=== PATIENT | female | born 1970 | race Caucasian/White ===

== ENCOUNTER 2018-03-04 06:19 | Emergency (ER) | payer OTHER, SELFPAY ==
[2018-03-04 06:46] LABS: Absolute Lymphocytes (CBC) 2.6 K/uL (0.7-4.9); Absolute Monocytes 0.5 K/uL (0.1-1.3); Absolute Neutrophil 3.2 K/uL (1.8-8.0); Eosinophils % 6.4 % (0-4.4); Hematocrit 40.1 % (36.0-45.0); Lymphocytes % 38.2 % (15.3-44.8); MCH 30.8 pg (27.0-35.0); MPV 8.4 fL (7.6-11.3); Monocytes % 7.1 % (3.3-12.3); RBC Red Blood Cell Count 4.45 M/uL (3.86-4.86)
[2018-03-04 06:50] LABS: Protime INR 0.93
--- NOTE | 2018-03-04 07:04 | EKG ---
Test Date: 2018-03-04 Test Time: 06:30:05 Psychologist: RAISSA MEASUREMENT RESULTS: Intervals: Rate: 59 [place]: 148 QRSD: 84 QT: 408 QTc: 403 [place]: P: 75 [place]: 148 QRS: 64 T: 79 INTERPRETIVE STATEMENTS: Sinus bradycardia with sinus arrhythmia RSR' or QR pattern in V1 suggests right ventricular conduction delay Borderline ECG Compared to ECG 10/07/2014 21:56:24 RSR' in V1 or V2 now present Electronically Signed On 03-04-18 07:03:34 SLIP CASTER by Valentín Ferrer
[2018-03-04 07:05] LABS: ALT/SGPT 25 U/L (12-78); AST/SGOT 21 U/L (15-37); Albumin 3.8 g/dL (3.4-5.0); Alkaline Phosphatase 56 U/L (45-117); BUN Blood Urea Nitrogen 16 mg/dL (7-18); Bicarbonate 25 mmol/L (21-32); Bilirubin Direct 0.1 mg/dL (0-0.2); Bilirubin Total 0.3 mg/dL (0.2-1.0); Glucose Level 95 mg/dL (74-106); Magnesium 2.2 mg/dL (1.8-2.4); NT PRO-BNP 48 pg/mL (<125); Potassium 3.8 mmol/L (3.5-5.1); Protein, Total 7.7 g/dL (6.4-8.2); Sodium Level 142 mmol/L (136-145); Troponin (Emerg Dept Use Only) < 0.02 ng/mL (0.0-0.045)
--- NOTE | 2018-03-04 08:50 | RAD REPORT ---
EXAM DESCRIPTION: RAD - Chest Single View - 03/04/2018 7:11 am CLINICAL HISTORY: CHEST PAIN Chest pain. COMPARISON: CHEST SINGLE VIEW dated 10/07/2014 FINDINGS: Portable technique limits examination quality. Linear subsegmental atelectasis is present both lung bases. The lungs are otherwise clear. The heart is normal in size. No displaced fractures.
--- NOTE | 2018-03-04 08:54 | EDPHYS ---
Physician Documentation [facility] Name: Polly Osei Age: 47 yrs Sex: Female : 1970 Arrival Date: 03/04/2018 Time: 06:19 Bed 7 Private MD: Moreno Watkins ED Physician Aj Petty HPI: 03/04 06:48 This 47 yrs old Female presents to ER via Ambulatory with complaints of Chest pm1 Pain. 06:48 The patient or guardian reports chest pain that is located primarily in the anterior pm1 aspect of left upper chest. Onset: yesterday. The pain does not radiate. Associated signs and symptoms: Pertinent positives: dizziness, bilateral hand numbness, Pertinent negatives: abdominal pain, cough, diaphoresis, headache, nausea, near syncope, palpitations, shortness of breath, vomiting. The chest pain is described as sharp. Duration: The patient or guardian reports a single episode, that is still ongoing. Modifying factors: The symptoms are alleviated by nothing. the symptoms are aggravated by palpation of area, movement of left arm. The patient has experienced similar episodes in the past, multiple times, Patient has had the pain daily for multiple months. The patient has been recently seen by a physician: Patient with the same complaint 1 month ago and went to [place] [facility]. Transferred to [facility] with a diagnosis of bradycardia. Stress test performed with repeat blood work and then patient was discharged home.. 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 - Social history:: Smoking status: Patient uses tobacco products, smokes one pack cigarettes per day. - Ebola Screening: : No symptoms or risks identified at this time. ROS: 06:48 Constitutional: Negative for fever, chills, and weight loss, Eyes: Negative for injury, pm1 pain, redness, and discharge, ENT: Negative for injury, pain, and discharge, Neck: Negative for injury, pain, and swelling. 06:48 Respiratory: Negative for shortness of breath, cough, wheezing, and pleuritic chest pain, Abdomen/GI: Negative for abdominal pain, nausea, vomiting, diarrhea, and constipation, Back: Negative for injury and pain, : Negative for injury, bleeding, discharge, and swelling, MS/Extremity: Negative for injury and deformity, Skin: Negative for injury, rash, and discoloration, Neuro: Negative for headache, weakness, numbness, tingling, and seizure. 06:48 Cardiovascular: Positive for chest pain, Negative for edema, orthopnea, palpitations. Exam: 06:48 Constitutional: This is a well developed, well nourished patient who is awake, alert, pm1 and in no acute distress. Head/Face: Normocephalic, atraumatic. Eyes: Pupils equal round and reactive to light, extra-ocular motions intact. Lids and lashes normal. Conjunctiva and sclera are non-icteric and not injected. Cornea within normal limits. Periorbital areas with no swelling, redness, or edema. ENT: Nares patent. No nasal discharge, no septal abnormalities noted. Tympanic membranes are normal and external auditory canals are clear. Oropharynx with no redness, swelling, or masses, exudates, or evidence of obstruction, uvula midline. Mucous membranes moist. Neck: Trachea midline, no thyromegaly or masses palpated, and no cervical lymphadenopathy. Supple, full range of motion without nuchal rigidity, or vertebral point tenderness. No Meningismus. 06:48 Cardiovascular: Regular rate and rhythm with a normal S1 and S2. No gallops, murmurs, or rubs. Normal PMI, no JVD. No pulse deficits. Respiratory: Lungs have equal breath sounds bilaterally, clear to auscultation and percussion. No rales, rhonchi or wheezes noted. No increased work of breathing, no retractions or nasal flaring. Abdomen/GI: Soft, non-tender, with normal bowel sounds. No distension or tympany. No guarding or rebound. No evidence of tenderness throughout. Back: No spinal tenderness. No costovertebral tenderness. Full range of motion. Skin: Warm, dry with normal turgor. Normal color with no rashes, no lesions, and no evidence of cellulitis. MS/ Extremity: Pulses equal, no cyanosis. Neurovascular intact. Full, normal range of motion. 06:48 Chest/axilla: Inspection: normal, Palpation: crepitus, is not appreciated, tenderness, that is mild, of the anterior aspect of left upper chest, that totally reproduces the patient's complaints, Movement of left arm reproduces chest pain. 06:48 Neuro: Orientation: is normal, Motor: is normal, moves all fours, strength is 5/5 in all extremities, Sensation: is normal, no obvious gross deficits, Gait: is steady, at a normal pace, without difficulty. Vital Signs: 06:31 BP 127 / 82; Pulse 70; Resp 20 S; Temp 98(O); Pulse Ox 98% on R/A; Weight 76.2 kg (R); cc3 Height 5 ft. 5 in. (165.10 cm) (R); Pain 7/10; 08:28 BP 123 / 76; Pulse 50 MON; Resp 17; Pulse Ox 99% ; sv 09:16 BP 128 / 82; Pulse 49; Resp 18; Pulse Ox 99% ; sv 06:31 Body Mass Index 27.96 (76.20 kg, 165.10 cm) cc3 08:28 Sinus bradycardia sv MDM: 06:23 Patient medically screened. pm1 06:54 Data reviewed: vital signs. Data interpreted: Pulse oximetry: on room air is 98 %. pm1 Interpretation: normal. 08:53 Counseling: I had a detailed discussion with the patient and/or guardian regarding: the pm1 historical points, exam findings, and any diagnostic results supporting the discharge/admit diagnosis, lab results, radiology results, the need for outpatient follow up, to return to the emergency department if symptoms worsen or persist or if there are any questions or concerns that arise at home, smoking cessation. 03/04 06:28 Order name: Basic Metabolic Panel; Complete Time: 07:09 pm1 03/04 06:28 Order name: CBC with Diff; Complete Time: 06:47 pm1 03/04 06:28 Order name: LFT's; Complete Time: 07:09 pm1 03/04 06:28 Order name: Magnesium; Complete Time: 07:09 pm1 03/04 06:28 Order name: NT PRO-BNP; Complete Time: 07:09 pm1 03/04 06:28 Order name: PT-INR; Complete Time: 07:00 pm1 03/04 06:28 Order name: Troponin (emerg Dept Use Only); Complete Time: 07:09 pm1 03/04 06:28 Order name: XRAY Chest (1 view); Complete Time: 08:53 pm1 03/04 06:28 Order name: EKG; Complete Time: 06:29 pm1 03/04 06:28 Order name: Cardiac monitoring; Complete Time: 06:32 pm1 03/04 06:28 Order name: EKG - Nurse/Tech; Complete Time: 06:32 pm1 03/04 06:28 Order name: IV Saline Lock; Complete Time: 06:40 pm1 03/04 06:28 Order name: Labs collected and sent; Complete Time: 06:40 pm1 03/04 06:28 Order name: O2 Per Protocol; Complete Time: 06:32 pm1 03/04 06:28 Order name: O2 Sat Monitoring; Complete Time: 06:32 pm1 Administered Medications: No medications were administered Disposition: 03/04/18 08:54 Discharged to Home. Impression: Chest pain, unspecified. - Condition is Stable. - Discharge Instructions: Nonspecific Chest Pain, Steps to Quit Smoking, Smoking Hazards. - Medication Reconciliation Form, Thank You Letter form. - Follow up: Emergency Department; When: As needed; Reason: Worsening of condition. Follow up: Moreno Watkins; When: 2 - 3 days; Reason: Recheck today's complaints, Continuance of care, Re-evaluation by your physician. - Problem is new. - Symptoms have improved. Addendum: 03/07/2018 06:56 Co-signature as Attending Physician, Aj Petty MD I agree with the assessment and c guzman plan of care. Signatures: Dispatcher [employer] Sophia Hamilton, Aj Wyatt RN, MD MD cha Marinas, Patrick, BENDING SHED WORKER BENDING SHED WORKER pm1 Brea Segovia cc3 Corrections: (The following items were deleted from the chart) 03/04 09:17 08:54 03/04/2018 08:54 Discharged to Home. Impression: Chest pain, unspecified. sv Condition is Stable. Discharge Instructions: Nonspecific Chest Pain, Steps to Quit Smoking, Smoking Hazards. Forms are Medication Reconciliation Form, Thank You Letter, Antibiotic Education, Prescription Opioid Use. Follow up: Emergency Department; When: As needed; Reason: Worsening of condition. Follow up: Moreno Watkins; When: 2 - 3 days; Reason: Recheck today's complaints, Continuance of care, Re-evaluation by your physician. Problem is new. Symptoms have improved. pm1
--- NOTE | 2018-03-04 08:54 | ER ---
Nurse's Notes [facility] Name: Polly Osei Age: 47 yrs Sex: Female : 1970 Arrival Date: 03/04/2018 Time: 06:19 Bed 7 Private MD: Moreno Watkins Diagnosis: Chest pain, unspecified Presentation: 03/04 06:31 Presenting complaint: Patient states: Intermittent left sided chest pain that radiates cc3 to the left arm since several days now with dizziness. Transition of care: patient was not received from another setting of care. Onset of symptoms is unknown. Risk Assessment: Do you want to hurt yourself or someone else? Patient reports no desire to harm self or others. Initial Sepsis Screen: Does the patient meet any 2 criteria? No. Patient's initial sepsis screen is negative. Does the patient have a suspected source of infection? No. Patient's initial sepsis screen is negative. Care prior to arrival: None. 06:31 Method Of Arrival: Ambulatory cc3 06:31 Acuity: DARWIN 3 cc3 Triage Assessment: 06:31 General: Appears in no apparent distress. uncomfortable, Behavior is calm, cooperative, cc3 appropriate for age. Pain: Complains of pain in left side of the chest Pain currently is 7 out of 10 on a pain scale. Quality of pain is described as aching. EENT: No signs and/or symptoms were reported regarding the EENT system. Neuro: Level of Consciousness is awake, alert, obeys commands, Oriented to person, place, time, situation, Appropriate for age. Cardiovascular: Reports chest pain, lightheadedness, since several days now. Cardiovascular: Patient's skin is warm and dry. Respiratory: Airway is patent Respiratory effort is even, unlabored, Respiratory pattern is regular, symmetrical. GI: Abdomen is round non-distended. : No signs and/or symptoms were reported regarding the genitourinary system. Derm: No signs and/or symptoms reported regarding the dermatologic system. Musculoskeletal: Circulation, motion, and sensation intact. Range of motion: intact in all extremities. 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 - Social history:: Smoking status: Patient uses tobacco products, smokes one pack cigarettes per day. - Ebola Screening: : No symptoms or risks identified at this time. Screenin:41 Abuse screen: Denies threats or abuse. Nutritional screening: No deficits noted. cc3 Tuberculosis screening: No symptoms or risk factors identified. Fall Risk None identified. Assessment: 07:00 Reassessment: Patient appears in no apparent distress at this time. Patient and/or cc3 family updated on plan of care and expected duration. Pain level reassessed. Patient is alert, oriented x 3, equal unlabored respirations, skin warm/dry/pink. Handed over to morning shift for continuity of care. 09:14 Reassessment: Patient appears in no apparent distress at this time. Patient and/or sv family updated on plan of care and expected duration. Pain level reassessed. Patient is alert, oriented x 3, equal unlabored respirations, skin warm/dry/pink. Pt stated that she has no insurance and is unable to get any help. Pt stated that the clinics here in our area are not able to see her because she makes too much. Pt stated that she was admitted at [facility] in [place] for 4 days and they were not able to help get her help either. She spoke with social workers over there. Informed pt that I could call and speak with one of our social workers to see if they could help her and she stated no, that they would not be able to help her. Vital Signs: 06:31 BP 127 / 82; Pulse 70; Resp 20 S; Temp 98(O); Pulse Ox 98% on R/A; Weight 76.2 kg (R); cc3 Height 5 ft. 5 in. (165.10 cm) (R); Pain 7/10; 08:28 BP 123 / 76; Pulse 50 MON; Resp 17; Pulse Ox 99% ; sv 09:16 BP 128 / 82; Pulse 49; Resp 18; Pulse Ox 99% ; sv 06:31 Body Mass Index 27.96 (76.20 kg, 165.10 cm) cc3 08:28 Sinus bradycardia sv ED Course: 06:19 Patient arrived in ED. am2 06:20 Moreno Watkins MD is Private Physician. am2 06:23 [facility] pm1 06:23 Aj Petty MD is Attending Physician. pm1 06:30 Inserted saline lock: 20 gauge in right antecubital area, using aseptic technique. cc3 Blood collected. Patient maintains SpO2 saturation greater than 95% on room air. 06:31 Arm band placed on left wrist. Patient notified of wait time. cc3 06:32 Triage completed. cc3 06:41 Patient has correct armband on for positive identification. Bed in low position. Call cc3 light in reach. Side rails up X 1. 07:09 X-ray completed. Portable x-ray completed in exam room. Patient tolerated procedure jb2 well. 07:10 XRAY Chest (1 view) In Process Unspecified. EDMS 08:29 Sophia Douglass, MIGUEL A is Primary Nurse. sv 08:54 Moreno Watkins MD is Referral Physician. pm1 09:16 No provider procedures requiring assistance completed. IV discontinued, intact, sv bleeding controlled, No redness/swelling at site. Pressure dressing applied. Administered Medications: No medications were administered Outcome: 08:54 Discharge ordered by MD. pm1 09:16 Discharged to home ambulatory. sv 09:16 Condition: stable 09:16 Discharge instructions given to patient, Instructed on discharge instructions, follow up and referral plans. Demonstrated understanding of instructions, follow-up care, Pt did not want to take her discharge papers. 09:17 Patient left the ED. sv Signatures: Dispatcher [employer] EDUT Sophia Douglass RN RN Kayden Noel jb2 Robi Jo NP FURNACE OPERATOR AND TENDER pm1 Pretty Diaz am2 Brea Segovia cc3
== END 2018-03-04 09:17 | disposition home or self-care (01) ==
LOC: ER 06:19
DX: R07.9 Chest pain, unspecified (principal); F17.210 Nicotine dependence, cigarettes, uncomplicated; R00.1 Bradycardia, unspecified
CPT/HCPCS: 36415; 71045; 80048; 80076; 83735; 83880; 84484; 85025; 85610; 93005; 99284

== ENCOUNTER 2020-09-05 22:41 | Emergency (ER) | payer SELFPAY ==
[2020-09-05 23:58] LABS: Urine Blood Negative (Negative); Urine Glucose Negative (Negative); Urine Protein Trace (Negative); Urine Specific Gravity 1.025 (1.005-1.030)
[2020-09-06] MEDS ORDERED: ONDANSETRON 4 MG/2 ML VIAL ONE (00:13)
[2020-09-06] MEDS ORDERED: MORPHINE 2 MG/ML SYR ONE (00:13)
[2020-09-06] MEDS ORDERED: KETOROLAC 30 MG/ML INJ ONE (00:14)
[2020-09-06] MEDS ORDERED: NA CHLORIDE 0.9% 1,000 ML ONE (00:14)
[2020-09-06 00:18] LABS: Basophils % 1.1 % (0-1.3); Hematocrit 38.6 % (36.0-45.0); Lymphocytes % 45.6 % (15.3-44.8); MPV 8.9 fL (7.6-11.3); RBC Red Blood Cell Count 4.29 M/uL (3.86-4.86)
[2020-09-06 00:37] LABS: ALT/SGPT 24 U/L (12-78); AST/SGOT 17 U/L (15-37); Albumin 3.7 g/dL (3.4-5.0); Alkaline Phosphatase 54 U/L (45-117); BUN Blood Urea Nitrogen 18 mg/dL (7-18); Bicarbonate 26 mmol/L (21-32); Bilirubin Direct < 0.1 mg/dL (0-0.2); Bilirubin Total 0.2 mg/dL (0.2-1.0); Glucose Level 117 mg/dL (74-106); Lipase 196 U/L (73-393); Potassium 3.7 mmol/L (3.5-5.1); Protein, Total 7.6 g/dL (6.4-8.2); Sodium Level 142 mmol/L (136-145)
--- NOTE | 2020-09-06 03:15 | ER ---
Nurse's Notes [facility] Name: Polly Osei Age: 49 yrs Sex: Female : 1970 Arrival Date: 09/05/2020 Time: 22:43 Bed 23 Private MD: Diagnosis: Abdominal tenderness;Tobacco abuse counseling;Tobacco use Presentation: 09/05 22:53 Chief complaint: Patient states: I have right sided abdominal pain that radiates to the iw back with stabbing pains. The pain started 2 days ago and has gotten worse. I have nausea and just don't feel good. Coronavirus screen: Client denies travel out of the [place] in the last 14 days. Ebola Screen: Patient negative for fever greater than or equal to 101.5 degrees Fahrenheit, and additional compatible Ebola Virus Disease symptoms Patient denies exposure to infectious person. Patient denies travel to an Ebola-affected area in the 21 days before illness onset. Initial Sepsis Screen: Does the patient meet any 2 criteria? No. Patient's initial sepsis screen is negative. Does the patient have a suspected source of infection? No. Patient's initial sepsis screen is negative. Risk Assessment: Do you want to hurt yourself or someone else? Patient reports no desire to harm self or others. Onset of symptoms was September 02, 2020. 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 - Social history:: Smoking status: Patient reports the use of cigarette tobacco products, smokes one pack cigarettes per day. Screenin/21 00:21 Abuse screen: Denies threats or abuse. Denies injuries from another. Nutritional ad5 screening: No deficits noted. Tuberculosis screening: No symptoms or risk factors identified. Fall Risk None identified. Assessment: 00:00 General: Appears in no apparent distress. uncomfortable, Behavior is calm, cooperative, ad5 appropriate for age. Pain: Complains of pain in right lower quadrant Pain currently is 7 out of 10 on a pain scale. Neuro: Level of Consciousness is awake, alert, obeys commands, Oriented to person, place, time, situation, Appropriate for age. Cardiovascular: No deficits noted. Denies chest pain, shortness of breath, Heart tones present Capillary refill < 3 seconds Patient's skin is warm and dry. Pulses are all present. Rhythm is regular. Respiratory: No deficits noted. Airway is patent Respiratory effort is even, unlabored, Respiratory pattern is regular, symmetrical. GI: Abdomen is flat, Bowel sounds present X 4 quads. Abd is soft Abdomen is tender to palpation in right lower quadrant Reports lower abdominal pain, nausea. : Reports urgency, urinary frequency. EENT: No deficits noted. Derm: No deficits noted. Skin is pink, warm \T\ dry. Musculoskeletal: No deficits noted. 01:05 Reassessment: Patient and/or family updated on plan of care and expected duration. Pain ad5 level reassessed. Patient is alert, oriented x 3, equal unlabored respirations, skin warm/dry/pink. Patient states feeling better. Patient states symptoms have improved. 02:36 Reassessment: No changes from previously documented assessment. Patient and/or family ad5 updated on plan of care and expected duration. Pain level reassessed. Patient is alert, oriented x 3, equal unlabored respirations, skin warm/dry/pink. Patient states feeling better. 03:40 Reassessment: Patient appears in no apparent distress at this time. No changes from ad5 previously documented assessment. Patient and/or family updated on plan of care and expected duration. Pain level reassessed. Patient is alert, oriented x 3, equal unlabored respirations, skin warm/dry/pink. Patient states feeling better. Patient states symptoms have improved. Vital Signs: 09/05 22:55 BP 109 / 59; Pulse 81; Resp 17; Temp 97.8; Pulse Ox 97% ; Weight 84.82 kg; Height 5 ft. iw 5 in. (165.10 cm); Pain 8/10; 09/06 00:00 BP 106 / 61; Pulse 54; Resp 16 S; Pulse Ox 99% on R/A; ad5 01:06 BP 104 / 64; Pulse 62; Resp 16 S; Pulse Ox 98% on R/A; ad5 02:34 BP 105 / 56; Pulse 56; Resp 16 S; Pulse Ox 96% on R/A; Pain 3/10; ad5 03:40 BP 134 / 79; Pulse 56; Resp 16 S; Pulse Ox 98% on R/A; Pain 3/10; ad5 09/05 22:55 Body Mass Index 31.12 (84.82 kg, 165.10 cm) iw ED Course: 09/05 22:43 Patient arrived in ED. bp1 22:55 Triage completed. iw 22:58 Arm band placed on left wrist. iw 23:32 Aj Petty MD is Attending Physician. sravanthi 23:47 Demian Juárez is Primary Nurse. ad5 09/06 00:00 Allergy band placed. Placed in gown. Bed in low position. Call light in reach. Side ad5 rails up X2. 00:20 No provider procedures requiring assistance completed. Initial lab(s) drawn, by me, ad5 sent to lab. Inserted saline lock: 20 gauge in right hand, using aseptic technique. 00:22 CT Stone Protocol In Process Unspecified. EDMS 01:07 Basic Metabolic Panel Sent. ad5 01:27 Chest Single View XRAY In Process Unspecified. EDMS 01:49 CT Chest Wo Con Sent. ad5 02:03 CT Chest Wo Con In Process Unspecified. EDMS 03:13 Deven Hernandez MD is Referral Physician. sravanthi 03:41 IV discontinued, intact, bleeding controlled, No redness/swelling at site. Pressure ad5 dressing applied. Administered Medications: 00:05 Drug: NS 0.9% 1000 ml Route: IV; Rate: 1 bolus; Site: right hand; ad5 03:41 Follow up: IV Status: Completed infusion; IV Intake: 1000ml ad5 00:05 Drug: Zofran (Ondansetron) 4 mg Route: IVP; Site: right hand; ad5 01:07 Follow up: Response: Nausea is decreased ad5 00:06 Drug: morphine 2 mg {Note: RASS 0.} Route: IVP; Site: right hand; ad5 01:07 Follow up: Response: Pain is decreased; RASS: Alert and Calm (0) ad5 00:08 Drug: TORadol (ketorolac) 30 mg Route: IVP; Site: right hand; ad5 01:07 Follow up: Response: No adverse reaction; Pain is decreased ad5 Intake: 03:41 IV: 1000ml; Total: 1000ml. ad5 Outcome: 03:14 Discharge ordered by . sravanthi 03:41 Discharged to home ambulatory. ad5 03:41 Condition: stable 03:41 Discharge instructions given to patient, Instructed on discharge instructions, follow up and referral plans. medication usage, Demonstrated understanding of instructions, follow-up care, medications, Prescriptions given X 3. 03:42 Patient left the ED. ad5 Signatures: Dispatcher [employer] EDMN jA Petty MD MD cha Williams, Irene, RN RN Cari العلي Andrea ad5 Corrections: (The following items were deleted from the chart) 00:20 00:06 morphine 2 mg IVP in right hand ad5 ad5 03:42 03:41 Allergy band placed. ad5 ad5
--- NOTE | 2020-09-06 03:15 | EDPHYS ---
Physician Documentation [facility] Name: Polly Osei Age: 49 yrs Sex: Female : 1970 Arrival Date: 09/05/2020 Time: 22:43 Bed 23 Private MD: ED Physician Aj Petty HPI: 09/05 23:51 This 49 yrs old Female presents to ER via Ambulatory with complaints of Flank sravanthi Pain. 23:51 The patient complains of pain in the right mid back and right low back. The pain sravanthi radiates to the right mid back and right low back. Onset: The symptoms/episode began/occurred 2 day(s) ago. Modifying factors: The symptoms are alleviated by nothing. the symptoms are aggravated by nothing. Associated signs and symptoms: The patient has no apparent associated signs or symptoms. Severity of pain: At its worst the pain was moderate in the emergency department the pain is unchanged. The patient has not experienced similar symptoms in the past. 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 - Social history:: Smoking status: Patient reports the use of cigarette tobacco products, smokes one pack cigarettes per day. ROS: 23:53 Constitutional: Negative for fever, chills, and weight loss, Eyes: Negative for injury, sravanthi pain, redness, and discharge, ENT: Negative for injury, pain, and discharge, Neck: Negative for injury, pain, and swelling, Cardiovascular: Negative for chest pain, palpitations, and edema, Respiratory: Negative for shortness of breath, cough, wheezing, and pleuritic chest pain, : Negative for injury, bleeding, discharge, and swelling, MS/Extremity: Negative for injury and deformity, Skin: Negative for injury, rash, and discoloration, Neuro: Negative for headache, weakness, numbness, tingling, and seizure, Psych: Negative for depression, anxiety, suicide ideation, homicidal ideation, and hallucinations, Allergy/Immunology: Negative for hives, rash, and allergies, Endocrine: Negative for neck swelling, polydipsia, polyuria, polyphagia, and marked weight changes, Hematologic/Lymphatic: Negative for swollen nodes, abnormal bleeding, and unusual bruising. 23:53 Abdomen/GI: Positive for abdominal pain, abdominal distension, of the posterior aspect of right lateral abdomen, anterior aspect of right lateral abdomen, right upper quadrant and right lower quadrant. 23:53 Back: Positive for flank pain, on the right. Exam: 23:53 Constitutional: This is a well developed, well nourished patient who is awake, alert, sraavnthi and in no acute distress. Head/Face: Normocephalic, atraumatic. Eyes: Pupils equal round and reactive to light, extra-ocular motions intact. Lids and lashes normal. Conjunctiva and sclera are non-icteric and not injected. Cornea within normal limits. Periorbital areas with no swelling, redness, or edema. ENT: Nares patent. No nasal discharge, no septal abnormalities noted. Tympanic membranes are normal and external auditory canals are clear. Oropharynx with no redness, swelling, or masses, exudates, or evidence of obstruction, uvula midline. Mucous membranes moist. Neck: Trachea midline, no thyromegaly or masses palpated, and no cervical lymphadenopathy. Supple, full range of motion without nuchal rigidity, or vertebral point tenderness. No Meningismus. Chest/axilla: Normal chest wall appearance and motion. Nontender with no deformity. No lesions are appreciated. Cardiovascular: Regular rate and rhythm with a normal S1 and S2. No gallops, murmurs, or rubs. Normal PMI, no JVD. No pulse deficits. Respiratory: Lungs have equal breath sounds bilaterally, clear to auscultation and percussion. No rales, rhonchi or wheezes noted. No increased work of breathing, no retractions or nasal flaring. Back: No spinal tenderness. No costovertebral tenderness. Full range of motion. Skin: Warm, dry with normal turgor. Normal color with no rashes, no lesions, and no evidence of cellulitis. MS/ Extremity: Pulses equal, no cyanosis. Neurovascular intact. Full, normal range of motion. Neuro: Awake and alert, GCS 15, oriented to person, place, time, and situation. Cranial nerves II-XII grossly intact. Motor strength 5/5 in all extremities. Sensory grossly intact. Cerebellar exam normal. Normal gait. Psych: Awake, alert, with orientation to person, place and time. Behavior, mood, and affect are within normal limits. 23:53 Abdomen/GI: Inspection: abdomen appears normal, Bowel sounds: normal, Palpation: mild abdominal tenderness, in the right upper quadrant and right lower quadrant, Liver: no appreciated palpable abnormalities, Hernia: not appreciated. Vital Signs: 22:55 BP 109 / 59; Pulse 81; Resp 17; Temp 97.8; Pulse Ox 97% ; Weight 84.82 kg; Height 5 ft. iw 5 in. (165.10 cm); Pain 8/10; 09/06 00:00 BP 106 / 61; Pulse 54; Resp 16 S; Pulse Ox 99% on R/A; ad5 01:06 BP 104 / 64; Pulse 62; Resp 16 S; Pulse Ox 98% on R/A; ad5 02:34 BP 105 / 56; Pulse 56; Resp 16 S; Pulse Ox 96% on R/A; Pain 3/10; ad5 03:40 BP 134 / 79; Pulse 56; Resp 16 S; Pulse Ox 98% on R/A; Pain 3/10; ad5 09/05 22:55 Body Mass Index 31.12 (84.82 kg, 165.10 cm) iw MDM: 09/05 23:45 Patient medically screened. [facility] 23:54 Differential diagnosis: nephrolithiasis, pyelonephritis, diverticulitis, pancreatitis, sravanthi appendicitis, bowel obstruction, cholecystitis, Cholelithiasis, diverticulitis, gastritis. Data reviewed: vital signs, nurses notes, lab test result(s), CBC, electrolytes, hepatic panel. 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 Counseling: I had a detailed discussion with the patient and/or guardian regarding: the historical points, exam findings, and any diagnostic results supporting the discharge/admit diagnosis, lab results, radiology results. 09/05 23:33 Order name: Basic Metabolic Panel [facility] 09/05 23:33 Order name: CBC with Diff; Complete Time: 00:58 sravanthi 09/05 23:33 Order name: Hepatic Function; Complete Time: 00:58 [facility] 09/05 23: Order name: Lipase; Complete Time: 00:58 [facility] 09/05 23:33 Order name: Urine Culture [facility] 09/05 23:33 Order name: Basic Metabolic Panel; Complete Time: 00:58 EDMS 09/05 23:33 Order name: CT Stone Protocol [facility] 09/05 23:57 Order name: Urine Dipstick-Ancillary; Complete Time: 00:58 EDAK 09/06 00:59 Order name: Chest Single View XRAY [facility] 09/06 01:34 Order name: CT Chest Wo Con [facility] 09/06 02:13 Order name: SARS-COV-2 RT PCR; Complete Time: 03:12 EDMS 09/05 23:33 Order name: IV Saline Lock; Complete Time: 00:20 [facility] 09/05 23:33 Order name: Labs collected and sent; Complete Time: 00:20 [facility] 09/05 23:33 Order name: Urine Dipstick-Ancillary (obtain specimen); Complete Time: 01:07 [facility] Administered Medications: 09/06 00:05 Drug: NS 0.9% 1000 ml Route: IV; Rate: 1 bolus; Site: right hand; ad5 03:41 Follow up: IV Status: Completed infusion; IV Intake: 1000ml ad5 00:05 Drug: Zofran (Ondansetron) 4 mg Route: IVP; Site: right hand; ad5 01:07 Follow up: Response: Nausea is decreased ad5 00:06 Drug: morphine 2 mg {Note: RASS 0.} Route: IVP; Site: right hand; ad5 01:07 Follow up: Response: Pain is decreased; RASS: Alert and Calm (0) ad5 00:08 Drug: TORadol (ketorolac) 30 mg Route: IVP; Site: right hand; ad5 01:07 Follow up: Response: No adverse reaction; Pain is decreased ad5 Disposition: 09/06/20 03:14 Discharged to Home. Impression: Abdominal tenderness, Tobacco abuse counseling, Tobacco use. - Condition is Stable. - Discharge Instructions: Abdominal Pain, Adult, Steps to Quit Smoking, Smoking Hazards, Abdominal Pain, Adult, [id number], Steps to Quit Smoking, [id number]. - Prescriptions for Bentyl 20 mg Oral Tablet - take 1 tablet by ORAL route every 6 hours As needed; 20 tablet. Pepcid 20 mg Oral Tablet - take 1 tablet by ORAL route every 12 hours for 10 days; 20 tablet. Zofran 4 mg Oral Tablet - take 1 tablet by ORAL route every 12 hours As needed; 20 tablet. - Medication Reconciliation Form, Thank You Letter, Antibiotic Education, Prescription Opioid Use form. - Follow up: Private Physician; When: 2 - 3 days; Reason: Recheck today's complaints, Continuance of care, Re-evaluation by your physician. Follow up: Deven Hernandez MD; When: 2 - 3 days; Reason: Recheck today's complaints, Re-evaluation by your physician. - Problem is new. - Symptoms have improved. 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 [facility] 03:42 03:14 09/06/2020 03:14 Discharged to Home. Impression: Abdominal tenderness; Tobacco ad5 abuse counseling; Tobacco use. Condition is Stable. Forms are Medication Reconciliation Form, Thank You Letter, Antibiotic Education, Prescription Opioid Use. Follow up: Private Physician; When: 2 - 3 days; Reason: Recheck today's complaints, Continuance of care, Re-evaluation by your physician. Follow up: Deven Hernandez; When: 2 - 3 days; Reason: Recheck today's complaints, Re-evaluation by your physician. Problem is new. Symptoms have improved. sravanthi
[2020-09-06 03:51] VITALS: TEMP 97.8
[2020-09-06 03:57] VITALS: BP 134/79; O2SAT 98
--- NOTE | 2020-09-06 08:43 | RAD REPORT ---
EXAM DESCRIPTION: RAD - Chest Single View - 09/06/2020 1:28 am CLINICAL HISTORY: COUGH Chest pain. COMPARISON: Chest Single View dated 03/04/2018; CHEST SINGLE VIEW dated 10/07/2014 FINDINGS: Portable technique limits examination quality. The lungs are mildly underinflated but grossly clear. The heart is upper limit of normal in size. No displaced fractures.
--- NOTE | 2020-09-06 08:53 | RAD REPORT ---
EXAM DESCRIPTION: Stone Protocol [facility]: CT ABDOMEN PELVIS WITH IV CONTRAST CLINICAL HISTORY: Abd pain;Flank pain. COMPARISON: None. TECHNIQUE: Serial axial CT images were obtained from above the diaphragm through the pubic symphysis without administration of intravenous or oral contrast. All CT scans are performed using dose optimization techniques as appropriate, including automated exp osure control and/or standardized protocols, where dose is adjusted for indication for exam and body habitus. FINDINGS: Thoracic: Mild patchy mosaic attenuation/groundglass opacities in the lung bases. Hepatobiliary: No obvious concerning hepatic lesion identified in the absence of intravenous contrast . The gallbladder is unremarkable. No biliary ductal dilatation. Pancreas: Unremarkable. Spleen: Unremarkable. Gastrointestinal: No evidence of bowel obstruction or perienteric inflammation. The appendix is leopoldo l. Small amount of fecal material throughout the colon. Adrenals: No abnormality identified in either adrenal gland. Renal: No obvious parenchymal abnormality in either kidney in the absence of intravenous contrast. No hydronephrosis or urolithiasis. Bladder/Reproductive: Are grossly unremarkable appearance of the underdistended urinary bladder by CT technique. Hysterectomy. Vascular/Lymphatics: No lymphadenopathy identified by CT size criteria. Abdominal aorta is normal in caliber. Tiny right-sided calcified pelvic phlebolith, not to be confused with a distal ureteral calc ulus. Musculoskeletal: No concerning osseous lesion identified. Fluid / peritoneum: No significant free fluid. No free intraperitoneal air identified. IMPRESSION: 1. No acute abnormality identified in the abdomen or pelvis by CT. 2. No hydronephrosis or urolithiasis. 3. Mild patchy mosaic attenuation/groundglass opacities in the lung bases, nonspecific but can be s een with chronic small vessel or small airways disease. Electronically signed by: Merle Peraza MD 09/06/2020 12:36 AM CDT Due to temporary technical issues with the PACS/Fluency reporting system, reports are being signed by the in house radiologist without review as a courtesy to ensure prompt reporting. The interpreting r adiologist is fully responsible for the content of the report.
--- NOTE | 2020-09-06 09:48 | RAD REPORT ---
EXAM DESCRIPTION: CT Chest Without Intravenous Contrast CLINICAL HISTORY: The patient is 49 years old and is Female; PAIN TECHNIQUE: Axial computed tomography images of the chest without intravenous contrast. Sagittal an d coronal reformatted images were created and reviewed. This CT exam was performed using one or mor e of the following dose reduction techniques: automated exposure control, adjustment of the mA and/ or kV according to patient size, and/or use of iterative reconstruction technique. COMPARISON: No relevant prior studies available. FINDINGS: Lungs: Dependent and bibasilar atelectasis. No mass. No consolidation. Pleural space: Unremarkable. No pneumothorax. No significant effusion. Heart: Unremarkable. No cardiomegaly. No significant pericardial effusion. Bones/joints: Unremarkable. No acute fracture. No dislocation. Soft tissues: Unremarkable. Vasculature: Unremarkable. No thoracic aortic aneurysm. Lymph nodes: Unremarkable. No enlarged lymph nodes. IMPRESSION: No acute finding in the chest. Electronically signed by: Jeremy Jones MD 09/06/2020 2:56 AM CDT Due to temporary technical issues with the PACS/Fluency reporting system, reports are being signed by the in house radiologist without review as a courtesy to ensure prompt reporting. The interpreting r adiologist is fully responsible for the content of the report.
== END 2020-09-06 03:42 | disposition home or self-care (01) ==
LOC: ER 22:41
DX: R10.819 Abdominal tenderness, unspecified site (principal); Z72.0 Tobacco use; Z71.6 Tobacco abuse counseling; Z20.822 Contact with and (suspected) exposure to COVID-19; Z88.2 Allergy status to sulfonamides; Z88.5 Allergy status to narcotic agent
CPT/HCPCS: 36415; 71045; 71250; 74176; 76377; 80048; 80076; 81003; 83690; 85025; 87086; 87088; 96361; 96374; 96375; 99284; U0003

== ENCOUNTER 2021-04-22 09:39 | Emergency (ER) | payer SELFPAY ==
[2021-04-22] MEDS ORDERED: LORAZEPAM 0.5 MG TABLET ONE (10:58)
--- NOTE | 2021-04-22 11:41 | EDPHYS ---
Physician Documentation [facility] Name: Polly Osei Age: 50 yrs Sex: Female : 1970 Arrival Date: 04/22/2021 Time: 09:41 Bed 25 Private MD: ED Physician Bassam Lemus HPI: 04/22 10:34 This 50 yrs old Female presents to ER via Ambulatory with complaints of Depression, pm1 Decreased Appetite. 10:34 The patient presents to the emergency department with depression, over a , the pm1 patient's father. Onset: The symptoms/episode began/occurred 1 month(s) ago. Past psychiatric history: Prior diagnosis: depression, anxiety, Psychiatric medications include: none. Associated signs and symptoms: Pertinent negatives: homicidal ideation, substance abuse, suicide ideation. Severity of symptoms: in the emergency department the symptoms are unchanged. The patient has not recently seen a physician. Patient is depressed over the of her father 1 month ago. She is reporting difficulty sleeping the past 3 days and has decreased appetite. Patient denies suicidal and homicidal ideation. 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 - Social history:: Smoking status: Patient reports the use of cigarette tobacco products, smokes one pack cigarettes per day. ROS: 10:34 Constitutional: Negative for fever, chills, and weight loss. pm1 10:34 Cardiovascular: Negative for chest pain, palpitations, and edema, Respiratory: Negative for shortness of breath, cough, wheezing, and pleuritic chest pain, Abdomen/GI: Negative for abdominal pain, nausea, vomiting, diarrhea, and constipation, MS/Extremity: Negative for injury and deformity, Skin: Negative for injury, rash, and discoloration, Neuro: Negative for headache, weakness, numbness, tingling, and seizure. 10:34 Psych: Positive for anxiety, depression, insomnia, Negative for homicidal ideation, suicide gesture, suicidal ideation. 10:34 All other systems are negative. Exam: 10:34 Constitutional: This is a well developed, well nourished patient who is awake, alert, pm1 and in no acute distress. Head/Face: Normocephalic, atraumatic. 10:34 Skin: Warm, dry with normal turgor. Normal color with no rashes, no lesions, and no evidence of cellulitis. MS/ Extremity: Pulses equal, no cyanosis. Neurovascular intact. Full, normal range of motion. 10:34 Cardiovascular: Exam negative for acute changes, Rate: normal, Rhythm: regular, Pulses: no pulse deficits are appreciated. 10:34 Respiratory: Exam negative for acute changes, respiratory distress, shortness of breath, Breath sounds: are clear throughout. 10:34 Neuro: Exam negative for acute changes, Orientation: is normal, Mentation: is normal, Motor: moves all fours, Gait: is steady, at a normal pace, without difficulty. 10:34 Psych: Behavior/mood is anxious, depressed, Affect is animated, Oriented to person, place, time, Patient has no thoughts/intents to harm self or others. Vital Signs: 10:15 BP 129 / 74; Pulse 82; Resp 17; Temp 97.0; Pulse Ox 98% ; Weight 81.65 kg; Height 5 ft. ll1 5 in. (165.10 cm); Pain 0/10; 10:15 Body Mass Index 29.95 (81.65 kg, 165.10 cm) ll1 MDM: 10:20 Patient medically screened. pm1 11:35 Data reviewed: vital signs. Data interpreted: Pulse oximetry: on room air is 98 %. pm1 Interpretation: normal. ED course: Patient is not suicidal or homicidal. Patient reports Ativan has given her the ability to relax and sleep but she has continued feelings of grief, which is natural given the recent of her father. Patient would like to go home with a prescription for antidepressant and will follow up with psychiatry in [place]. 11:43 ED course: Grief support group information at [facility] provided pm1 to the patient. 13:24 ED course: patient returned back for work release. pm1 Administered Medications: 10:50 Drug: Ativan (LORazepam) 1 mg Route: PO; ww Disposition: 17:44 Co-signature as Attending Physician, Bassam Lemus MD I agree with the assessment and rn plan of care. Attestation: The patient's history, exam findings, diagnostics, and a summary of any interventions or procedures was reviewed in detail with Robi Jo NP. Disposition Summary: 04/22/21 11:40 Discharge Ordered Location: Home pm1 Problem: new pm1 Symptoms: have improved pm1 Condition: Stable pm1 Diagnosis - Acute stress reaction - grief and bereavement pm1 Followup: pm1 - With: Emergency Department - When: As needed - Reason: Worsening of condition Followup: pm1 - With: Private Physician - When: 2 - 3 days - Reason: Recheck today's complaints, Continuance of care, Re-evaluation by your physician Discharge Instructions: - Discharge Summary Sheet pm1 - Stress, Adult pm1 - Managing Depression, Adult pm1 Forms: - Medication Reconciliation Form pm1 - Thank You Letter pm1 - Antibiotic Education pm1 - Prescription Opioid Use pm1 - Work release form pm1 Prescriptions: - Celexa 20 mg Oral Tablet - take 1 tablet by ORAL route once daily; 20 tablet; Refills: 0, Product pm1 Selection Permitted Signatures: Bassam Lemus MD MD rn Marinas, Patrick, NP DIRECTOR OF DEVELOPMENT pm1 Rachael Gan RN RN ll1 Latha Baker RN RN ww
--- NOTE | 2021-04-22 11:41 | ER ---
Nurse's Notes [facility] Name: Polly Osei Age: 50 yrs Sex: Female : 1970 Arrival Date: 04/22/2021 Time: 09:41 Bed 25 Private MD: Diagnosis: Acute stress reaction-grief and bereavement Presentation: 04/22 10:15 Chief complaint: Patient states: depression for 1 month. Father . Unable to ll1 eat/sleep. Generalized suicidal thoughts, no specific plan. Ebola Screen: Patient denies travel to an Ebola-affected area in the 21 days before illness onset. Initial Sepsis Screen: Does the patient meet any 2 criteria? No. Patient's initial sepsis screen is negative. Does the patient have a suspected source of infection? No. Patient's initial sepsis screen is negative. Risk Assessment: Do you want to hurt yourself or someone else? Patient reports no desire to harm self or others. Onset of symptoms was March 22, 2021. 10:15 Method Of Arrival: Ambulatory ll1 10:15 Acuity: DARWIN 3 ll1 15:06 Coronavirus screen: Client denies travel out of the [place] in the last 14 days. ww Triage Assessment: 15:05 General: Appears Behavior is anxious, crying. 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 - Social history:: Smoking status: Patient reports the use of cigarette tobacco products, smokes one pack cigarettes per day. Screenin:30 Abuse screen: Denies threats or abuse. Denies injuries from another. Nutritional ww screening: No deficits noted. Tuberculosis screening: No symptoms or risk factors identified. Fall Risk None identified. Assessment: 11:00 General: Appears well groomed, well developed, Behavior is anxious, crying. General: ww Extremely emotional due to recent loss of her father, stress of her terminal and disabled children. Pain: Denies pain. Neuro: Level of Consciousness is awake, alert, obeys commands, Oriented to person, place, time, situation. Cardiovascular: Denies chest pain, shortness of breath, Capillary refill < 3 seconds. Respiratory: No deficits noted. Airway is patent Respiratory effort is even, unlabored, Respiratory pattern is regular, symmetrical. GI: No deficits noted. No signs and/or symptoms were reported involving the gastrointestinal system. : No deficits noted. No signs and/or symptoms were reported regarding the genitourinary system. EENT: No deficits noted. No signs and/or symptoms were reported regarding the EENT system. Derm: No deficits noted. No signs and/or symptoms reported regarding the dermatologic system. Skin is intact, is healthy with good turgor, Skin is pink, warm \\T\\ dry. Skin temperature is. Musculoskeletal: No deficits noted. No signs and/or symptoms reported regarding the musculoskeletal system. Psych: 11:30 [place] Suicide Severity Screening: In the past month, have you wished you were ww or wished you could go to sleep and not wake up? Patient responds "No." "In the past month, have you actually had any thoughts of killing yourself?" Patient responds "no." "In your lifetime, have you ever done anything, started to do anything, or prepared to do anything to end your life?" Patient responds "yes." Patient reports suicidal intent occurred greater than 3 months prior. Subjective: Patient's mood is sad, irritable, Delusions are denied, Hallucinations are denied. Objective: Patient is cooperative, Speech is normal, Affect is appropriate. Safety Checks: Personal items have not been removed. Door is open. Pt denies substance abuse. Commitment: None. 15:06 Interventions: Patient reassessed during use of restraints. Patient is physically safe. ww Vital Signs: 10:15 BP 129 / 74; Pulse 82; Resp 17; Temp 97.0; Pulse Ox 98% ; Weight 81.65 kg; Height 5 ft. ll1 5 in. (165.10 cm); Pain 0/10; 10:15 Body Mass Index 29.95 (81.65 kg, 165.10 cm) ll1 ED Course: 09:41 Patient arrived in ED. as 10:17 Triage completed. ll1 10:17 Arm band placed on. ll1 10:20 Robi Jo NP is PHCP. pm1 10:20 Bassam Lemus MD is Attending Physician. pm1 10:44 Latha Baker, RN is Primary Nurse. ww 11:30 Patient has correct armband on for positive identification. ww 11:30 No provider procedures requiring assistance completed. Patient did not have IV access ww during this emergency room visit. Administered Medications: 10:50 Drug: Ativan (LORazepam) 1 mg Route: PO; ww Outcome: 11:40 Discharge ordered by MD. pm1 13:00 Discharged to home ambulatory. ww 13:00 Condition: stable 13:00 Discharge instructions given to patient, Instructed on discharge instructions, follow up and referral plans. medication usage, safety practices, Demonstrated understanding of instructions, Prescriptions given X 1. 13:44 Patient left the ED. ll1 Signatures: Becka Block Patrick, NP DATA TECHNICAL LEAD pm1 Rachael Gan, RN RN 1 Latha Baker, RN RN
[2021-04-22 13:48] VITALS: BP 129/74; TEMP 97; O2SAT 98
== END 2021-04-22 13:44 | disposition home or self-care (01) ==
LOC: ER 09:39
DX: F43.0 Acute stress reaction (principal); F43.21 Adjustment disorder with depressed mood; F17.210 Nicotine dependence, cigarettes, uncomplicated; Z88.2 Allergy status to sulfonamides; Z88.5 Allergy status to narcotic agent
CPT/HCPCS: 99283

== ENCOUNTER 2021-05-29 20:39 | Emergency (ER) | payer SELFPAY ==
[2021-05-29 21:26] LABS: Urine Blood Negative (Negative); Urine Glucose Negative (Negative); Urine Protein Trace (Negative); Urine Specific Gravity >=1.030 (1.005-1.030)
[2021-05-29 21:34] LABS: Urine Specific Gravity/Preg >1.030 (1.005-1.030)
[2021-05-29 21:38] LABS: Absolute Lymphocytes (CBC) 2.9 K/uL (0.7-4.9); Hematocrit 40.3 % (36.0-45.0); Lymphocytes % 37.8 % (15.3-44.8); MPV 8.3 fL (7.6-11.3); RBC Red Blood Cell Count 4.53 M/uL (3.86-4.86)
[2021-05-29 22:03] LABS: Protime INR 0.97
[2021-05-29 22:04] LABS: Barbiturates NEGATIVE (NEGATIVE); Benzodiazepines NEGATIVE (NEGATIVE); Cocaine NEGATIVE (NEGATIVE); METHAMPHETAM NEGATIVE (NEGATIVE); Methadone NEGATIVE (NEGATIVE); Opiates NEGATIVE (NEGATIVE); Phencyclidine NEGATIVE (NEGATIVE); THC Cannibis POSITIVE (NEGATIVE)
[2021-05-29 22:31] LABS: ALT/SGPT 25 U/L (12-78); AST/SGOT 24 U/L (15-37); Albumin 3.9 g/dL (3.4-5.0); Alkaline Phosphatase 56 U/L (45-117); BUN Blood Urea Nitrogen 15 mg/dL (7-18); Bicarbonate 22 mmol/L (21-32); Bilirubin Direct < 0.1 mg/dL (0-0.2); Bilirubin Total 0.3 mg/dL (0.2-1.0); Glucose Level 92 mg/dL (74-106); Potassium 3.8 mmol/L (3.5-5.1); Protein, Total 7.8 g/dL (6.4-8.2); Sodium Level 138 mmol/L (136-145)
--- NOTE | 2021-05-29 23:41 | EDPHYS ---
Physician Documentation [facility] Name: Polly Osei Age: 50 yrs Sex: Female : 1970 Arrival Date: 05/29/2021 Time: 20:43 Bed 19 Private MD: ED Physician Williams Michelle HPI: 05/29 21:12 This 50 yrs old Female presents to ER via Ambulatory with complaints of Suicidal jmm Ideation. 21:12 The patient presents to the emergency department with depression, suicide ideation, but jmm the patient has no formulated plan. Onset: The symptoms/episode began/occurred today. Past psychiatric history: Psychiatric medications include: Celexa. Associated signs and symptoms: Pertinent positives; depression, suicide ideation. The patient has not experienced similar symptoms in the past. This is a 50-year-old female with history of anxiety, arthritis, COPD, depression the presents emergency department with complaints of increased depression since the of her father which was roughly 2 months ago. Patient states that she has also had issues with her sister due to financial problems. Patient stated that she did not want to be here anymore earlier today and was advised to go to the ED for evaluation for suicidal ideations. Patient currently states she has no plan to hurt herself but she is in a position where she does not know what to do patient states she ran out of her Celexa and is unsure which dose she takes. Patient also denies any homicidal ideation. 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 - Social history:: Smoking status: Patient denies any tobacco usage or history of. ROS: 21:12 Constitutional: Negative for fever, chills, and weight loss, Cardiovascular: Negative jmm for chest pain, palpitations, and edema, Respiratory: Negative for shortness of breath, cough, wheezing, and pleuritic chest pain. 21:12 Psych: Positive for depression. 21:12 All other systems are negative. Exam: 21:12 Head/Face: atraumatic. Eyes: EOMI, no conjunctival erythema appreciated ENT: Moist [facility] Mucus Membranes Neck: Trachea midline, Supple Chest/axilla: Normal chest wall appearance and motion. Cardiovascular: Regular rate and rhythm. No edema appreciated Respiratory: Normal respirations, no respiratory distress appreciated Abdomen/GI: Non distended, soft Back: Normal ROM Skin: General appearance color normal MS/ Extremity: Moves all extremities, no obvious deformities appreciated, no edema noted to the lower extremities 21:12 Constitutional: The patient appears alert, awake, anxious, uncomfortable. 21:12 Neuro: Orientation: is normal, Mentation: is normal, Memory: is normal. 21:12 Psych: Behavior/mood is pleasant, cooperative, anxious, depressed, Patient has no thoughts/intents to harm self or others. Vital Signs: 21:11 BP 125 / 69; Pulse 60; Resp 16; Temp 97.7; Pulse Ox 96% on R/A; Weight 79.38 kg; Height vc1 5 ft. 5 in. (165.10 cm); Pain 0/10; 21:11 Body Mass Index 29.12 (79.38 kg, 165.10 cm) vc1 MDM: 21:48 Patient medically screened. [facility] 23:39 Data reviewed: vital signs, nurses notes. [facility] 23:39 ED course: Patient was evaluated by [facility] commercial representative did not recommend [facility] inpatient care for the patient. Will set up follow-up in 1 to 2 weeks for further evaluation and outpatient care. I discussed this with the patient who agrees with plan of care. I did review previous visits it looks like the patient is taking 20 mg of Celexa. I will refill that prescription for. Patient otherwise given strict return precautions. Patient understood and agrees plan of care.. 05/29 21:00 Order name: Acetaminophen; Complete Time: 22:41 [facility] 05/29 21:00 Order name: Basic Metabolic Panel; Complete Time: 22:41 [facility] 05/29 21:00 Order name: CBC with Diff; Complete Time: 21:48 [facility] 05/29 21:00 Order name: ETOH Level; Complete Time: 22:08 [facility] 05/29 21:00 Order name: Hepatic Function; Complete Time: 22:41 [facility] 05/29 21:00 Order name: PT-INR; Complete Time: 22:04 [facility] 05/29 21:00 Order name: Ptt, Activated; Complete Time: 22:04 [facility] 05/29 21:00 Order name: Salicylate; Complete Time: 22:28 [facility] 05/29 21:00 Order name: Urine Drug Screen; Complete Time: 22:04 [facility] 05/29 21:00 Order name: EKG; Complete Time: 21:01 [facility] 05/29 21:00 Order name: EKG - Nurse/Tech; Complete Time: 21:49 [facility] 05/29 21:05 Order name: COVID-19 SARS RT PCR (Document "Date of Onset" if Symptomatic); Complete mw2 Time: 22:53 05/29 21:25 Order name: Urine Dipstick-Ancillary; Complete Time: 21:30 [facility] 05/29 21:27 Order name: Urine --Ancillary (enter results); Complete Time: 21:48 ds4 05/29 21:00 Order name: IV Saline Lock; Complete Time: 21:28 [facility] 05/29 21:00 Order name: Labs collected and sent; Complete Time: 21:28 [facility] 05/29 21:00 Order name: Suicide Screening ([place]); Complete Time: 21:44 [facility] 05/29 21:00 Order name: Urine Dipstick-Ancillary (obtain specimen); Complete Time: 21:28 [facility] Administered Medications: No medications were administered Disposition: 05/30 01:01 Co-signature as Attending Physician, Williams Michelle MD. [email or web address] Disposition Summary: 05/29/21 23:40 Discharge Ordered Location: Home [facility] Condition: Stable [facility] Diagnosis - Depression and bereavement [facility] Followup: [facility] - With: Private Physician - When: 2 - 3 days - Reason: Recheck today's complaints, Continuance of care, Re-evaluation by your physician Discharge Instructions: - Discharge Summary Sheet [facility] - Managing Depression, Adult [facility] Forms: - Medication Reconciliation Form [facility] - Thank You Letter [facility] - Antibiotic Education [facility] - Prescription Opioid Use [facility] Prescriptions: - Celexa 20 mg Oral Tablet - take 1 tablet by ORAL route once daily; 20 tablet; Refills: 0, Product [facility] Selection Permitted Signatures: Dispatcher [employer] Paulo Sargent PA PA jmm Holmes, Maurice, MD MD mh7 Marina Medina RN RN vc1
--- NOTE | 2021-05-29 23:41 | ER ---
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 I lost my dad in March my sister started drama on Wednesday. I don't really want to I just feel worthless and that I don't matter, my feelings don't matter. 21:09 Method Of Arrival: Ambulatory vc1 21:11 Ebola Screen: No symptoms or risks identified at this time. Initial Sepsis Screen: Does vc1 the patient meet any 2 criteria? No. Patient's initial sepsis screen is negative. Does the patient have a suspected source of infection? No. Patient's initial sepsis screen is negative. Risk Assessment: Do you want to hurt yourself or someone else? Patient reports desire/thoughts of hurting themselves or someone else. Provider notified. Onset of symptoms is unknown. 21:11 Acuity: DARWIN 3 vc1 Triage Assessment: 21:12 General: Appears in no apparent distress. comfortable, Behavior is calm, cooperative, vc1 appropriate for age. Pain: Denies pain. Neuro: No deficits noted. Level of Consciousness is awake, alert, obeys commands, Oriented to person, place, time, situation, Appropriate for age. Cardiovascular: No deficits noted. Respiratory: No deficits noted. 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 - Social history:: Smoking status: Patient denies any tobacco usage or history of. Vital Signs: 21:11 BP 125 / 69; Pulse 60; Resp 16; Temp 97.7; Pulse Ox 96% on R/A; Weight 79.38 kg; Height vc1 5 ft. 5 in. (165.10 cm); Pain 0/10; 21:11 Body Mass Index 29.12 (79.38 kg, 165.10 cm) vc1 ED Course: 20:43 Patient arrived in ED. jj6 20:58 Paulo Lang PA is PHCP. [facility] 20:58 Williams Michelle MD is Attending Physician. m 21:12 Triage completed. vc1 21:12 Arm band placed on right wrist. vc1 21:13 Denise Iverson RN is Primary Nurse. sf1 21:28 Inserted saline lock: 22 gauge in right antecubital area, using aseptic technique. ds4 Blood collected. 22:25 called [facility] spoke to [place] to have a screener evaluate the patient. mw2 Administered Medications: No medications were administered Outcome: 23:40 Discharge ordered by . [facility] 05/30 00:00 Patient left the ED. sf1 Signatures: Paulo Lang PA PA jmm Swanson, Donovan ds4 Mariam Estevez mw2 Sameera Hackett jj6 Marina Medina RN RN vc1 Denise Iverson RN RN sf1
[2021-05-30 00:34] VITALS: BP 125/69; TEMP 97.7; O2SAT 96
== END 2021-05-30 | disposition home or self-care (01) ==
LOC: ER 20:39
DX: F43.21 Adjustment disorder with depressed mood (principal); Z63.4 Disappearance and death of family member; F41.9 Anxiety disorder, unspecified; Z20.822 Contact with and (suspected) exposure to COVID-19; Z88.2 Allergy status to sulfonamides; Z88.5 Allergy status to narcotic agent
CPT/HCPCS: 36415; 80048; 80076; 80307; 80320; 80329; 81003; 81025; 85025; 85610; 85730; 93005; 99283; U0003

== ENCOUNTER 2021-10-29 09:14 | Emergency (ER) | payer SELFPAY ==
[2021-10-29 10:41] LABS: Urine Blood Negative (Negative); Urine Glucose Negative (Negative); Urine Protein Negative (Negative); Urine Specific Gravity >=1.030 (1.005-1.030); Urine pH 5.5 (5.0-7.0)
[2021-10-29 10:51] LABS: Absolute Lymphocytes (CBC) 2.5 K/uL (0.7-4.9); Hematocrit 39.8 % (36.0-45.0); Lymphocytes % 29.5 % (15.3-44.8); MCV 89.2 fL (80-100); RBC Red Blood Cell Count 4.46 M/uL (3.86-4.86)
[2021-10-29] MEDS ORDERED: NA CHLORIDE 0.9% 1,000 ML ONE ×2 (10:56→12:33)
[2021-10-29 11:05] LABS: Bilirubin Total 0.4 mg/dL (0.2-1.0); Potassium 3.7 mmol/L (3.5-5.1); Protein, Total 7.8 g/dL (6.4-8.2)
--- NOTE | 2021-10-29 14:00 | ER ---
Nurse's Notes [facility] Name: Polly Osei Age: 51 yrs Sex: Female : 1970 Arrival Date: 10/29/2021 Time: 09:20 Bed 20 Private MD: Diagnosis: Dehydration;Exposure to excessive heat Presentation: 10/29 09:41 Chief complaint: Patient states: headache, nausea , dizzy, throat hurts since this iw morning, got overheated at work yesterday. Coronavirus screen: Client presents with at least one sign or symptom that may indicate coronavirus-19. Ebola Screen: Patient negative for fever greater than or equal to 101.5 degrees Fahrenheit, and additional compatible Ebola Virus Disease symptoms Patient denies exposure to infectious person. Patient denies travel to an Ebola-affected area in the 21 days before illness onset. No symptoms or risks identified at this time. Initial Sepsis Screen: Does the patient meet any 2 criteria? No. Patient's initial sepsis screen is negative. Does the patient have a suspected source of infection? No. Patient's initial sepsis screen is negative. Risk Assessment: Do you want to hurt yourself or someone else? Patient reports no desire to harm self or others. Onset of symptoms was October 29, 2021. 09:41 Method Of Arrival: Ambulatory iw 09:41 Acuity: DARWIN 4 iw 10:21 Acuity: DARWIN 3 iw Triage Assessment: 09:45 General: Appears in no apparent distress. uncomfortable, Behavior is calm, cooperative, bp appropriate for age. Pain: Denies pain. EENT: No deficits noted. Neuro: Level of Consciousness is awake, alert, obeys commands, Oriented to Appropriate for age. Cardiovascular: Rhythm is sinus bradycardia. Respiratory: No deficits noted. GI: No signs and/or symptoms were reported involving the gastrointestinal system. : No signs and/or symptoms were reported regarding the genitourinary system. Derm: No deficits noted. Musculoskeletal: No deficits noted. Historical: - Allergies: 09:46 Sulfa (Sulfonamide Antibiotics); iw 09:46 Tramadol HCl; iw - PMHx: 09:46 Anxiety; Arthritis; BRADYCARDIA; COPD; Depression; right torn rotator cuff; iw - Immunization history:: Adult Immunizations up to date. - Social history:: Smoking status: Patient denies any tobacco usage or history of. Screenin:45 Abuse screen: Denies threats or abuse. Denies injuries from another. Nutritional bp screening: No deficits noted. Tuberculosis screening: No symptoms or risk factors identified. Fall Risk None identified. Assessment: 09:45 General: SEE TRIAGE NOTE. bp 11:30 Reassessment: No changes from previously documented assessment. Patient and/or family bp updated on plan of care and expected duration. Pain level reassessed. 12:30 Reassessment: No changes from previously documented assessment. Patient and/or family bp updated on plan of care and expected duration. Pain level reassessed. 14:13 Reassessment: PT D/C HOME AMBULATORY, DX WITH DEHYDRATION. bp Vital Signs: 09:46 BP 102 / 70; Pulse 60; Resp 16; Temp 98.4; Pulse Ox 100% on R/A; iw 10:21 BP 95 / 58 Supine; Pulse 46; Resp 16; Pulse Ox 100% ; bp 10:23 BP 102 / 66 Standing; Pulse 47; Resp 16; Pulse Ox 100% ; bp 10:45 BP 111 / 62; Pulse 47; Resp 15; Pulse Ox 99% ; bp 11:30 BP 123 / 71; Pulse 39; Resp 14; Pulse Ox 100% ; bp 12:30 BP 111 / 77; Pulse 65; Resp 16; Pulse Ox 100% ; bp ED Course: 09:20 Patient arrived in ED. as 09:33 Robi Jo NP is PHCP. pm1 09:33 Aj Petty MD is Attending Physician. pm1 09:42 Triage completed. iw 09:42 Arm band placed on. iw 09:45 Patient has correct armband on for positive identification. Bed in low position. Call bp light in reach. Side rails up X2. 09:45 No provider procedures requiring assistance completed. bp 10:02 Juan Patterson, RN is Primary Nurse. bp 10:45 Inserted saline lock: 20 gauge in right antecubital area, using aseptic technique. bp Blood collected. 14:13 IV discontinued, intact, bleeding controlled, No redness/swelling at site. Pressure bp dressing applied. Administered Medications: 10:45 Drug: NS 0.9% 1000 ml Route: IV; Rate: 1000 ml; Site: right antecubital; bp 14:14 Follow up: IV Status: Completed infusion; IV Intake: 1000ml bp 12:30 Drug: NS 0.9% 1000 ml Route: IV; Rate: 1000 ml; Site: right antecubital; bp 14:14 Follow up: IV Status: Completed infusion; IV Intake: 1000ml bp Medication: 14:13 VIS not applicable for this client. bp Intake: 14:14 IV: 1000ml; Total: 1000ml. bp 14:14 IV: 1000ml; Total: 2000ml. bp Outcome: 13:59 Discharge ordered by MD. pm1 14:13 Discharged to home ambulatory. bp 14:13 Condition: stable 14:13 Discharge instructions given to patient, Instructed on discharge instructions, follow up and referral plans. Demonstrated understanding of instructions, follow-up care. 14:14 Patient left the ED. iw Signatures: Becka Block Irene, RN RN iw Robi Jo, [facility] pm1 Juan Patterson, RN RN bp
--- NOTE | 2021-10-29 14:00 | EDPHYS ---
Physician Documentation [facility] Name: Polly Osei Age: 51 yrs Sex: Female : 1970 Arrival Date: 10/29/2021 Time: 09:20 Bed 20 Private MD: TRACY Physician Aj Petty HPI: 10/29 10:04 This 51 yrs old Female presents to ER via Ambulatory with complaints of Pain All Over, pm1 Heat Exposure, Nausea. 10:04 Headache and body aches from heat exposure. Onset: The symptoms/episode began/occurred pm1 yesterday. Severity of symptoms: in the emergency department the symptoms are worse. The patient has not experienced similar symptoms in the past. The patient has not recently seen a physician. 51-year-old patient presents to the ER with complaints of headache, nausea, dizziness from working in an environment that does not have air conditioning. Patient works for [employer] for the [employer]. Patient also reports onset of sore throat, patient is concerned that she may have COVID or flu and would like to get tested due to having a chronically sick at home. Historical: - Allergies: 09:46 Sulfa (Sulfonamide Antibiotics); iw 09:46 Tramadol HCl; iw - PMHx: 09:46 Anxiety; Arthritis; BRADYCARDIA; COPD; Depression; right torn rotator cuff; iw - Immunization history:: Adult Immunizations up to date. - Social history:: Smoking status: Patient denies any tobacco usage or history of. ROS: 10:04 Constitutional: Negative for fever, chills, and weight loss, Cardiovascular: Negative pm1 for chest pain, palpitations, and edema, Respiratory: Negative for shortness of breath, cough, wheezing, and pleuritic chest pain, Abdomen/GI: Negative for abdominal pain, nausea, vomiting, diarrhea, and constipation, Back: Negative for injury and pain, MS/Extremity: Negative for injury and deformity, Skin: Negative for injury, rash, and discoloration. 10:04 ENT: Positive for sore throat. 10:04 Neuro: Positive for headache, Negative for dizziness, numbness, tingling, weakness. 10:04 All other systems are negative. Exam: 10:04 Constitutional: This is a well developed, well nourished patient who is awake, alert, pm1 and in no acute distress. Head/Face: Normocephalic, atraumatic. 10:04 Back: No spinal tenderness. No costovertebral tenderness. Full range of motion. Skin: Warm, dry with normal turgor. Normal color with no rashes, no lesions, and no evidence of cellulitis. MS/ Extremity: Pulses equal, no cyanosis. Neurovascular intact. Full, normal range of motion. 10:04 ENT: Exam is negative for acute changes, External ear(s): are unremarkable, Ear canal(s): are normal, TM's: are normal, Mouth: Lips: normal, moist, Oral mucosa: normal, Posterior pharynx: no acute changes, Airway: normal, no evidence of obstruction, Tonsils: are normal in appearance, erythema, is not appreciated, exudate, is not appreciated, peritonsillar mass, is not appreciated. 10:04 Cardiovascular: Exam negative for acute changes, Rate: normal, Rhythm: regular, Pulses: no pulse deficits are appreciated, Heart sounds: normal, normal S1and S2. 10:04 Respiratory: Exam negative for acute changes, respiratory distress, shortness of breath, Breath sounds: are clear throughout. 10:04 Abdomen/GI: Exam negative for acute changes, Inspection: abdomen appears normal, Palpation: abdomen is soft and non-tender, in all quadrants. 10:04 Neuro: Exam negative for acute changes, Orientation: is normal, Mentation: is normal, Motor: is normal, moves all fours. Vital Signs: 09:46 BP 102 / 70; Pulse 60; Resp 16; Temp 98.4; Pulse Ox 100% on R/A; iw 10:21 BP 95 / 58 Supine; Pulse 46; Resp 16; Pulse Ox 100% ; bp 10:23 BP 102 / 66 Standing; Pulse 47; Resp 16; Pulse Ox 100% ; bp 10:45 BP 111 / 62; Pulse 47; Resp 15; Pulse Ox 99% ; bp 11:30 BP 123 / 71; Pulse 39; Resp 14; Pulse Ox 100% ; bp 12:30 BP 111 / 77; Pulse 65; Resp 16; Pulse Ox 100% ; bp MDM: 09:35 Patient medically screened. pm1 12:48 Data reviewed: vital signs. Data interpreted: Pulse oximetry: on room air is 100 %. pm1 Interpretation: normal. 13:58 Counseling: I had a detailed discussion with the patient and/or guardian regarding: the pm1 historical points, exam findings, and any diagnostic results supporting the discharge/admit diagnosis, lab results, the need for outpatient follow up, to return to the emergency department if symptoms worsen or persist or if there are any questions or concerns that arise at home. 10/29 09:57 Order name: CBC with Diff; Complete Time: 10:57 pm1 10/29 09:57 Order name: CMP; Complete Time: 11:07 pm1 10/29 09:57 Order name: CPK; Complete Time: 11:07 pm1 10/29 10:03 Order name: COVID-19 SARS RT PCR (Document "Date of Onset" if Symptomatic); Complete bp Time: 12:14 10/29 10:03 Order name: Flu; Complete Time: 11:45 bp 10/29 10:07 Order name: Strep; Complete Time: 11:45 pm1 10/29 09:57 Order name: Orthostatics; Complete Time: 10:35 pm1 10/29 09:57 Order name: Urine Dipstick-Ancillary (obtain specimen); Complete Time: 11:05 pm1 10/29 09:57 Order name: IV Saline Lock; Complete Time: 10:35 pm1 10/29 10:41 Order name: Urine Dipstick-Ancillary; Complete Time: 10:43 EDMS 10/29 11:33 Order name: Throat Culture EDMS Administered Medications: 10:45 Drug: NS 0.9% 1000 ml Route: IV; Rate: 1000 ml; Site: right antecubital; bp 14:14 Follow up: IV Status: Completed infusion; IV Intake: 1000ml bp 12:30 Drug: NS 0.9% 1000 ml Route: IV; Rate: 1000 ml; Site: right antecubital; bp 14:14 Follow up: IV Status: Completed infusion; IV Intake: 1000ml bp Disposition Summary: 10/29/21 13:59 Discharge Ordered Location: Home pm1 Problem: new pm1 Symptoms: have improved pm1 Condition: Stable pm1 Diagnosis - Dehydration pm1 - Exposure to excessive heat pm1 Followup: pm1 - With: Emergency Department - When: As needed - Reason: Worsening of condition Followup: pm1 - With: Private Physician - When: 2 - 3 days - Reason: Recheck today's complaints, Continuance of care, Re-evaluation by your physician Discharge Instructions: - Discharge Summary Sheet pm1 - Dehydration, Adult pm1 - Heat Exhaustion pm1 - Rehydration, Adult pm1 - Preventing Heat Exhaustion, Adult pm1 Forms: - Work release form pm1 - Medication Reconciliation Form pm1 - Thank You Letter pm1 - Antibiotic Education pm1 - Prescription Opioid Use pm1 Signatures: Dispatcher [employer] EDMelly Umanzor RN RN iw Robi Jo NP [employer]ED [employer]ARD pm1 Juan Patterson RN RN bp
[2021-10-29 14:25] VITALS: TEMP 98.4
[2021-10-29 14:33] VITALS: O2SAT 100
[2021-10-29 14:35] VITALS: BP 111/77
== END 2021-10-29 14:14 | disposition home or self-care (01) ==
LOC: ER 09:14
DX: E86.0 Dehydration (principal); X30.XXXA Exposure to excessive natural heat, initial encounter; J44.9 Chronic obstructive pulmonary disease, unspecified; Z88.2 Allergy status to sulfonamides; Z88.5 Allergy status to narcotic agent; Z20.822 Contact with and (suspected) exposure to COVID-19
CPT/HCPCS: 36415; 80053; 81003; 82550; 85025; 87070; 87081; 87804; J7030; U0003

== ENCOUNTER 2022-03-25 12:02 | Emergency (ER) | payer SELFPAY ==
--- OUTSIDE RECORDS SUMMARY | 2022-03-25 12:04 | XMS REPORT | Continuity of Care Document ---
:1970 Author Organization [facility] t Address [address] [place] [address] Dr. Bruno [address] [place] [id number] Care Team Providers Name Role Phone Unavailable Unavailable Unavailable Problems This patient has no known problems. Allergies, Adverse Reactions, Alerts This patient has no known allergies or adverse reactions. Medications This patient has no known medications. Procedures This patient has no known procedures. Results Test Description Test Time Test Comments Results Result Comments Source VAGINAL PATHOGENS DNA PANEL 2021-07-16 14:29:40 Test Item Value Reference Range Interpretation Comme nts REEMA SPECIES (test code = NEGATIVE NEGATIVE ) G. VAGINALIS (test code = NEGATIVE NEGATIVE ) T. VAGINALIS (test code = NEGATIVE NEGATIVE U NLESS OTHERWISE INDICATED, ALL ) TESTING PERFORM ED ATCLINICAL PATHOLOGY [facility] [address] [place] [id number] LABORATORY DIRE CTOR: EMILY MORIN M.D. CLIA NUMBER [id number] [place]. [id number]
[2022-03-25 13:02] LABS: Absolute Lymphocytes (CBC) 2.6 K/uL (0.7-4.9); Hematocrit 38.8 % (36.0-45.0); Lymphocytes % 33.6 % (15.3-44.8); MCV 88.8 fL (80-100); MPV 7.5 fL (7.6-11.3); RBC Red Blood Cell Count 4.38 M/uL (3.86-4.86)
--- NOTE | 2022-03-25 13:15 | RAD REPORT ---
EXAM DESCRIPTION: RAD - Chest Single View - 03/25/2022 1:08 pm CLINICAL HISTORY: left arm pain COMPARISON: Portable 09/06/2020 TECHNIQUE: AP portable chest image was obtained 03/25/2022 1:08 pm . FINDINGS: Lungs are clear. Portable technique and overlying chest soft tissues accentuate the bibasi lar lung markings. Trachea is midline. Pericardial fat accentuates heart size which is normal. No vascular engorgement. No measurable pleural effusion and no pneumothorax. No acute bony abnormality seen. No acute aortic f indings suspected. IMPRESSION: No acute cardiopulmonary process.
[2022-03-25 13:16] LABS: Potassium 3.8 mmol/L (3.5-5.1); Troponin High Sensitivity 4.6 pg/mL (<58.9)
--- NOTE | 2022-03-25 13:16 | RAD REPORT ---
EXAM DESCRIPTION: RAD - Shoulder Left 2 View - 03/25/2022 1:08 pm CLINICAL HISTORY: PAIN COMPARISON: No comparisons TECHNIQUE: Internal and external rotation views of the left shoulder were obtained. FINDINGS: There is no fracture or dislocation. No AC joint separation. There may be slight spurring along the undersurface of the clavicle at the AC joint. No soft tissue abnormality. No pathologic bon e process. IMPRESSION: Negative two-view left shoulder examination for acute findings.
--- NOTE | 2022-03-25 13:17 | RAD REPORT ---
EXAM DESCRIPTION: RAD - Elbow Left 3 View - 03/25/2022 1:08 pm CLINICAL HISTORY: PAIN COMPARISON: None. FINDINGS: No fracture is identified and no elevated posterior fat pad. There is no dislocation or pe riosteal reaction noted. The lateral view there is a faint density along the anterior margin of the joint. This is not seen on the other two views. Intra-articular loose body is unlikely. IMPRESSION: Negative left elbow examination for acute or significant finding.
--- NOTE | 2022-03-25 14:33 | EDPHYS ---
Physician Documentation [facility] Name: Polly Osei Age: 51 yrs Sex: Female : 1970 Arrival Date: 03/25/2022 Time: 12:06 Bed 12 Private MD: ED Physician Bassam Lemus HPI: 03/25 14:27 This 51 yrs old Female presents to ER via Ambulatory with complaints of Arm Pain. rn 14:28 The patient or guardian complains of pain, that is acute. The complaints affect the rn anterior aspect of left shoulder and left bicep. Onset: The symptoms/episode began/occurred 3 day(s) ago. Modifying factors: The symptoms are alleviated by remaining still, the symptoms are aggravated by movement, lifting weight, bending arm. Severity of symptoms: At their worst the symptoms were moderate, in the emergency department the symptoms are unchanged. The patient has experienced similar episodes in the past. The patient has not recently seen a physician. 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 NO chest pain or sob. No abd pain. Hurts to lift things and bend left arm. . 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 - Social history:: Smoking status: Patient reports the use of cigarette tobacco products, smokes one pack cigarettes per day. Patient/guardian denies using alcohol. - Family history:: not pertinent. - Hospitalizations: : No recent hospitalization is reported. ROS: 14:28 Constitutional: Negative for fever, chills, and weight loss, Eyes: Negative for injury, rn pain, redness, and discharge, Neck: Negative for injury, pain, and swelling, Cardiovascular: Negative for chest pain, palpitations, and edema, Respiratory: Negative for shortness of breath, cough, wheezing, and pleuritic chest pain, Abdomen/GI: Negative for abdominal pain, nausea, vomiting, diarrhea, and constipation, Back: Negative for injury and pain, MS/Extremity: + left arm pain Skin: Negative for injury, rash, and discoloration, Neuro: Negative for headache, weakness, numbness, tingling, and seizure. Exam: 13:57 ECG was reviewed by the Attending Physician. rn 14:28 Constitutional: This is a well developed, well nourished patient who is awake, alert, rn and in no acute distress. Head/Face: Normocephalic, atraumatic. Neck: Trachea midline, no masses palpated, and no cervical lymphadenopathy. Supple, full range of motion without nuchal rigidity, or vertebral point tenderness. No Meningismus. Cardiovascular: Regular rhythm, bradycardic. No pulse deficits. Respiratory: No increased work of breathing, no retractions or nasal flaring. Abdomen/GI: Soft, non-tender Back: No spinal tenderness. No costovertebral tenderness. Full range of motion. Skin: Warm, dry with normal turgor. Normal color with no rashes, no lesions, and no evidence of cellulitis. MS/ Extremity: Pulses equal, no cyanosis. Neurovascular intact. Full, normal range of motion. Equal circumference. No focal tenderness. NO bony tenderness. NO gross deformity. Neuro: Awake and alert, GCS 15, oriented to person, place, time, and situation. Cranial nerves II-XII grossly intact. Motor strength 5/5 in all extremities. Sensory grossly intact. Cerebellar exam normal. Normal gait. Vital Signs: 12:23 BP 127 / 72; Pulse 78; Resp 18; Temp 97.6(O); Pulse Ox 99% on R/A; Weight 73.94 kg; ld1 Height 5 ft. 5 in. (165.10 cm); Pain 10/10; 14:07 BP 129 / 69; Pulse 56; Resp 18; Pulse Ox 100% on R/A; ld1 12:23 Body Mass Index 27.12 (73.94 kg, 165.10 cm) ld1 MDM: 12:15 Patient medically screened. rn 14:28 Differential diagnosis: closed fracture, tendonitis, arthritis, radiculopathy. Data rn reviewed: vital signs, nurses notes, lab test result(s), EKG, radiologic studies, plain films, and as a result, I will discharge patient. Counseling: I had a detailed discussion with the patient and/or guardian regarding: the historical points, exam findings, and any diagnostic results supporting the discharge/admit diagnosis, lab results, radiology results, the need for outpatient follow up, to return to the emergency department if symptoms worsen or persist or if there are any questions or concerns that arise at home. Special discussion: I discussed with the patient/guardian in detail that at this point there is no indication for admission to the hospital. It is understood, however, that if the symptoms persist or worsen the patient needs to return immediately for re-evaluation. Based on the history and exam findings, there is no indication for further emergent testing or inpatient evaluation. I discussed with the patient/guardian the need to see the orthopedic surgeon for further evaluation of the symptoms. I discussed with the patient/guardian the need to see the primary care provider for further evaluation of the symptoms. 03/25 12:28 Order name: Basic Metabolic Panel; Complete Time: 13:56 rn 03/25 12:28 Order name: CBC with Diff; Complete Time: 13:56 rn 03/25 12:28 Order name: NT PRO-BNP; Complete Time: 13:56 rn 03/25 12:28 Order name: Troponin HS; Complete Time: 13:56 rn 03/25 12:28 Order name: XRAY Chest (1 view); Complete Time: 13:56 rn 03/25 12:28 Order name: XRAY Shoulder LEFT 2 view; Complete Time: 13:56 rn 03/25 12:28 Order name: EKG; Complete Time: 12:28 rn 03/25 12:28 Order name: Cardiac monitoring; Complete Time: 12:35 rn 03/25 12:28 Order name: EKG - Nurse/Tech; Complete Time: 12:54 rn 03/25 12:28 Order name: IV Saline Lock; Complete Time: 12:54 rn 03/25 12:28 Order name: Labs collected and sent; Complete Time: 12:54 rn 03/25 12:28 Order name: O2 Per Protocol; Complete Time: 12:35 rn 03/25 12:28 Order name: O2 Sat Monitoring; Complete Time: 12:35 rn 03/25 12:28 Order name: XRAY Elbow LEFT 3 view; Complete Time: 13:56 rn EC:57 Rate is 48 beats/min. Rhythm is regular. QRS [place] is Normal. IA interval is normal. QRS rn interval is normal. QT interval is normal. No Q waves. T waves are Normal. No ST changes noted. Clinical impression: Sinus bradycardia. Interpreted by me. Reviewed by me. Administered Medications: No medications were administered Disposition Summary: 03/25/22 14:33 Discharge Ordered Location: Home rn Problem: new rn Symptoms: have improved rn Condition: Stable rn Diagnosis - Pain in left upper arm rn - Other specified arthritis - left shoulder rn - Cervical disc disorder with radiculopathy rn Followup: rn - With: Private Physician - When: As needed - Reason: Recheck today's complaints, Re-evaluation by your physician Discharge Instructions: - Discharge Summary Sheet rn - Arthritis rn - Cervical Radiculopathy rn - Musculoskeletal Pain rn - Tendinitis rn Forms: - Medication Reconciliation Form rn - Thank You Letter rn - Antibiotic rn psychiatric - Prescription Opioid Use rn - Work release form ld1 Prescriptions: - Cyclobenzaprine 10 mg Oral Tablet - take 1 tablet by ORAL route every 8-12 hours As needed; 10 tablet; Refills: 0, rn Product Selection Permitted - Medrol (Christian) 4 mg Oral Tablets, Dose Pack - take 1 tablet by ORAL route as directed - follow package instructions; 1 rn packet; Refills: 0, Product Selection Permitted Signatures: Dispatcher [employer] EDBassam Olea MD MD rn Dibbern, Lauren, RN RN ld1
--- NOTE | 2022-03-25 14:33 | ER ---
Nurse's Notes [facility] Name: Polly Osei Age: 51 yrs Sex: Female : 1970 Arrival Date: 03/25/2022 Time: 12:06 Bed 12 Private MD: Diagnosis: Pain in left upper arm;Other specified arthritis-left shoulder;Cervical disc disorder with radiculopathy Presentation: 03/25 12:23 Chief complaint: Patient states: Left arm pain - denies injury. Coronavirus screen: At ld1 this time, the client does not indicate any symptoms associated with coronavirus-19. Ebola Screen: No symptoms or risks identified at this time. Initial Sepsis Screen: Does the patient meet any 2 criteria? No. Patient's initial sepsis screen is negative. Does the patient have a suspected source of infection? No. Patient's initial sepsis screen is negative. Risk Assessment: Do you want to hurt yourself or someone else? Patient reports no desire to harm self or others. Onset of symptoms was March 25, 2022. 12:23 Method Of Arrival: Ambulatory ld1 12:23 Acuity: DARWIN 3 ld1 Triage Assessment: 12:24 General: Appears in no apparent distress. comfortable, Behavior is calm, cooperative, ld1 appropriate for age. Pain: Complains of pain in left arm Pain does not radiate. Pain currently is 10 out of 10 on a pain scale. Quality of pain is described as throbbing, Pain began suddenly, Is continuous. EENT: No signs and/or symptoms were reported regarding the EENT system. Neuro: Level of Consciousness is awake, alert, obeys commands, Oriented to person, place, time, situation. Cardiovascular: Capillary refill < 3 seconds Patient's skin is warm and dry. Respiratory: Airway is patent Respiratory effort is even, unlabored. GI: Abdomen is round non-distended. : No signs and/or symptoms were reported regarding the genitourinary system. Derm: No signs and/or symptoms reported regarding the dermatologic system. Musculoskeletal: Reports pain in left arm. 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 - Social history:: Smoking status: Patient reports the use of cigarette tobacco products, smokes one pack cigarettes per day. Patient/guardian denies using alcohol. - Family history:: not pertinent. - Hospitalizations: : No recent hospitalization is reported. Screenin:25 Abuse screen: Denies threats or abuse. Denies injuries from another. Nutritional ld1 screening: No deficits noted. Tuberculosis screening: No symptoms or risk factors identified. Fall Risk None identified. Assessment: 12:25 Reassessment: See triage assessment. ld1 Vital Signs: 12:23 BP 127 / 72; Pulse 78; Resp 18; Temp 97.6(O); Pulse Ox 99% on R/A; Weight 73.94 kg; ld1 Height 5 ft. 5 in. (165.10 cm); Pain 10/10; 14:07 BP 129 / 69; Pulse 56; Resp 18; Pulse Ox 100% on R/A; ld1 12:23 Body Mass Index 27.12 (73.94 kg, 165.10 cm) ld1 ED Course: 12:06 Patient arrived in ED. mr 12:15 Bassam Lemus MD is Attending Physician. rn 12:23 Kristin Montanez, MIGUEL A is Primary Nurse. ld1 12:24 Triage completed. ld1 12:24 Arm band placed on right wrist. ld1 12:25 Patient has correct armband on for positive identification. Placed in gown. Bed in low ld1 position. Call light in reach. Side rails up X2. oncology rn on. Pulse ox on. NIBP on. Door closed. Noise minimized. Warm blanket given. 12:25 No provider procedures requiring assistance completed. ld1 12:54 Inserted saline lock: 20 gauge in right antecubital area, using aseptic technique. ld1 Blood collected. 13:10 XRAY Chest (1 view) In Process Unspecified. EDMS 13:10 XRAY Shoulder LEFT 2 view In Process Unspecified. EDMS 13:10 XRAY Elbow LEFT 3 view In Process Unspecified. EDMS 14:57 IV discontinued, intact, bleeding controlled, No redness/swelling at site. ld1 Administered Medications: No medications were administered Medication: 12:25 VIS not applicable for this client. ld1 Outcome: 14:33 Discharge ordered by . rn 14:56 Discharged to home ambulatory. ld1 14:56 Condition: stable 14:56 Discharge instructions given to patient, Instructed on discharge instructions, follow up and referral plans. medication usage, Demonstrated understanding of instructions, follow-up care, medications, Prescriptions given X 2. 14:57 Patient left the ED. ld1 Signatures: Dispatcher [employer] Edilia Harris Roman, MD MD rn Dibbern, Lauren, RN RN ld1
[2022-03-25 17:45] VITALS: TEMP 97.6
[2022-03-25 17:50] VITALS: BP 129/69; O2SAT 100
--- NOTE | 2022-03-26 16:02 | EKG ---
Test Date: 2022-03-25 Test Time: 12:46:39 Break Out Worker: LUZ MEASUREMENT RESULTS: Intervals: Rate: 48 OK: 152 QRSD: 78 QT: 420 QTc: 375 [place]: P: 45 OK: 152 QRS: -26 T: 17 INTERPRETIVE STATEMENTS: Sinus bradycardia Otherwise normal ECG Compared to ECG 05/29/2021 21:30:22 Sinus arrhythmia no longer present Electronically Signed On 03-26-22 16:00:23 CLAIMS ADJUSTER by Gerard Laws
== END 2022-03-25 14:57 | disposition home or self-care (01) ==
LOC: ER 12:02
DX: M13.812 Other specified arthritis, left shoulder (principal); M50.10 Cervical disc disorder with radiculopathy, unspecified cervical region; Z88.2 Allergy status to sulfonamides; Z88.5 Allergy status to narcotic agent
CPT/HCPCS: 36415; 71045; 80048; 83880; 84484; 85025; 93005; 99284

== ENCOUNTER 2025-01-23 10:39 | Emergency (ER) | payer SELFPAY ==
--- NOTE | 2025-01-23 11:47 | RAD REPORT ---
EXAMINATION: US BILATERAL LOWER EXTREMITY VENOUS DOPPLER CLINICAL INDICATION: PAIN RIGHT TECHNIQUE: Complete bilateral duplex sonography of the RIGHT lower extremity veins was performed. The examination included compression for vein patency, color Doppler imaging and flow augmentation in response to distal compression of the distal external iliac, common femoral, femoral, popliteal, tibi al, and great and small saphenous veins. COMPARISON: No prior exam. FINDINGS: Duplex sonography testing of the veins of the RIGHT lower extremity was performed. Color flow imaging shows all veins to be compressible with [id number] color filling. Pulsatile and phasic flow is present within all lower extremity deep and superficial veins examined. IMPRESSION: There is no deep vein or superficial vein thrombosis.
--- NOTE | 2025-01-23 12:00 | RAD REPORT ---
EXAMINATION: XR RIGHT FOOT CLINICAL INDICATION: Female, 54 years old. r/o FB;Pain TECHNIQUE: Multiple views of the right foot were obtained. COMPARISON: No prior exam. FINDINGS: No fracture, dislocation or radiopaque foreign body. Moderate plantar calcaneal spur.
--- NOTE | 2025-01-23 12:00 | RAD REPORT ---
EXAMINATION: XR RIGHT ANKLE CLINICAL INDICATION: . PAIN TECHNIQUE:Two view radiograph of the right ankle were obtained. COMPARISON: No prior exam. FINDINGS: No fracture or dislocation is seen. Small plantar calcaneal spur.
--- NOTE | 2025-01-23 12:40 | EDPHYS ---
Physician Documentation [facility] Name: Polly Osei Age: 54 yrs Sex: Female : 1970 Arrival Date: 01/23/2025 Time: 10:39 Bed 12 Private MD: ED Physician Fer Kennedy HPI: 01/23 12:43 This 54 yrs old Female presents to ER via Ambulatory with complaints of Ankle Injury, kb Foot Pain. 12:43 Patient is a 54-year-old female who presents for right ankle and foot pain and swelling kb that has been ongoing for 3 weeks. States the pain is okay in the morning but gets worse as she is walking on it throughout the day. Reports that the swelling is also gone in the morning but comes back in the afternoon. Reports now she is starting to have some pain in her right knee denies injury or trauma.. 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 - Infectious Disease History:: Denies. - Social history:: Smoking status: Patient reports the use of cigarette tobacco products, smokes one pack cigarettes per day. ROS: 12:32 Constitutional: As per HPI kb Exam: 12:41 Constitutional: This is a well developed, well nourished patient who is awake, alert, kb and in no acute distress. Head/Face: Normocephalic, atraumatic. ENT: Moist Mucous membranes Cardiovascular: Regular rate Respiratory: Respirations even and unlabored. No increased work of breathing. Talking in full sentences Skin: Warm, dry with normal turgor. Normal color. Neuro: Awake and alert, GCS 15, oriented to person, place, time, and situation. 12:41 Musculoskeletal/extremity: Extremities: grossly normal except: noted in the right lateral malleolus, right medial malleolus, medial aspect of right heel and instep of right foot: pain, tenderness, ROM: intact in all extremities, Circulation is intact in all extremities. Sensation intact. Weight bearing: able to fully bear weight, Vital Signs: 10:58 BP 128 / 60; Pulse 72; Resp 18; Temp 98.7; Pulse Ox 100% ; Weight 81.65 kg; Height 5 me1 ft. 5 in. ; Pain 8/10; 12:53 BP 126 / 64; Pulse 73; Resp 17; Temp 98.4; Pulse Ox 100% ; me1 10:58 Body Mass Index 29.95 (81.65 kg, 165.1 cm) me1 10:58 Pain Scale: Adult me1 MDM: 10:44 Medical Screening Exam initiated kb 12:42 Differential diagnosis: fracture, sprain, foreign body. Data reviewed: vital signs, kb nurses notes. Independent interpretation of the following test(s) in the Emergency Department X-Ray: My interpretation is no FB on foot xray, no dislocation and fracture. Counseling: I had a detailed discussion with the patient and/or guardian regarding the historical points, exam findings, and any diagnostic results supporting the discharge/admit diagnosis, radiology results, the need for outpatient follow up, a family practitioner, to return to the emergency department if symptoms worsen or persist or if there are any questions or concerns that arise at home. 01/23 11:00 Order name: Ankle Right 3 View XRAY; Complete Time: 12:05 kb 01/23 11:00 Order name: Foot Right 3 View XRAY; Complete Time: 12:05 kb 01/23 11:00 Order name: US Extremity Venous Unilateral Ltd; Complete Time: 11:49 kb Administered Medications: No medications were administered Disposition Summary: 01/23/25 12:40 Discharge Ordered Notes: Location: Home kb Condition: Stable kb Diagnosis - Pain in right ankle and joints of right foot kb Followup: kb - With: Emergency Department - When: As needed - Reason: Worsening of condition Followup: kb - With: Private Physician - When: 2 - 3 days - Reason: Recheck today's complaints, Continuance of care, Re-evaluation by your physician Discharge Instructions: - Discharge Summary Sheet kb - Musculoskeletal Pain kb Forms: - Work release form kb - Medication Reconciliation Form kb - Antibiotic Education kb - Prescription Opioid Use kb - Patient Portal Instructions kb - Leadership Thank You Letter kb Prescriptions: - Diclofenac Sodium 75 mg Oral tablet, delayed release (enteric coated) - take 1 tablet ORAL route 2 times per day As needed; 30 tablet; Refills: 0, kb Product Selection Permitted - orphenadrine citrate 100 mg Oral Tablet Sustained Release - take 1 tablet ORAL route 2 times per day As needed; 20 tablet; Refills: 0, kb Product Selection Permitted Signatures: Dispatcher [employer] Griselda Gates FNP-C FNP-Ckb Eddleman, Michelle, RN RN me1 Corrections: (The following items were deleted from the chart) 11:00 11:00 Ankle Right 3 View+RAD.RAD.[email or web address] ordered. EDMS EDMS 11:00 11:00 Foot Right 3 View+RAD.RAD.BRZ ordered. EDMS EDMS
--- NOTE | 2025-01-23 12:40 | ER ---
Nurse's Notes [facility] Name: Polly Osei Age: 54 yrs Sex: Female : 1970 Arrival Date: 01/23/2025 Time: 10:39 Bed 12 Private MD: Diagnosis: Pain in right ankle and joints of right foot Presentation: 01/23 10:58 Chief complaint: Patient states: about 3 weeks ago R ankle started swelling, especially me1 in the evening, and has intermittent sharp stabbing pains to that foot/ankle, 8/10. Knot on the bottom of right foot as well. Also c/o pain to right knee. Coronavirus screen: Vaccine status: Patient reports receiving the 2nd dose of the covid vaccine. Ebola Screen: No symptoms or risks identified at this time. Initial Sepsis Screen: Does the patient meet any 2 criteria? No. Patient's initial sepsis screen is negative. Does the patient have a suspected source of infection? No. Patient's initial sepsis screen is negative. Risk Assessment: Do you want to hurt yourself or someone else? Patient reports no desire to harm self or others. Onset of symptoms is unknown. 10:58 Method Of Arrival: Ambulatory me1 10:58 Acuity: DARWIN 4 me1 Triage Assessment: 11:01 General: Appears uncomfortable, Behavior is calm, cooperative, appropriate for age, me1 Reports pain in right foot and ankle and right knee. Pain: Complains of pain in right knee and right foot and instep of right foot and medial aspect of right heel and right medial malleolus and right lateral malleolus Pain does not radiate. Pain currently is 8 out of 10 on a pain scale. Quality of pain is described as sharp, stabbing, Pain began gradually, Is continuous. EENT: No signs and/or symptoms were reported regarding the EENT system. Neuro: Level of Consciousness is awake, alert, obeys commands, Oriented to person, place, time, situation, Appropriate for age. Cardiovascular: Patient's skin is warm and dry. Respiratory: Airway is patent Respiratory effort is even, unlabored, Respiratory pattern is regular, symmetrical. GI: No signs and/or symptoms were reported involving the gastrointestinal system. : No signs and/or symptoms were reported regarding the genitourinary system. Derm: Skin is intact, is healthy with good turgor, Skin is normal. Musculoskeletal: Reports pain in right knee and right foot and instep of right foot and medial aspect of right heel and right medial malleolus and right lateral malleolus. 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 - Infectious Disease History:: Denies. - Social history:: Smoking status: Patient reports the use of cigarette tobacco products, smokes one pack cigarettes per day. Screenin:51 [facility] ED Fall Risk Assessment (Adult) History of falling in the last 3 months, me1 including since admission No falls in past 3 months (0 pts) Confusion or Disorientation No (0 pts) Intoxicated or Sedated No (0 pts) Impaired Gait No (0 pts) Mobility Assist Device Used No (0 pt) Altered Elimination No (0 pt) Score/Fall Risk Level 0 - 2 = Low Risk Maintained a safe environment, Provided non-skid footwear, Hourly rounding (assess needs \T\ fall precautionary measures) done. Abuse screen: Denies threats or abuse. Nutritional screening: No deficits noted. Tuberculosis screening: No symptoms or risk factors identified. Assessment: 12:51 General: See triage assessment. me1 Vital Signs: 10:58 BP 128 / 60; Pulse 72; Resp 18; Temp 98.7; Pulse Ox 100% ; Weight 81.65 kg; Height 5 me1 ft. 5 in. ; Pain 8/10; 12:53 BP 126 / 64; Pulse 73; Resp 17; Temp 98.4; Pulse Ox 100% ; me1 10:58 Body Mass Index 29.95 (81.65 kg, 165.1 cm) me1 10:58 Pain Scale: Adult ms1 ED Course: 10:41 Patient arrived in ED. mr 10:44 Griselda Mancilla FNP-C is PHCP. kb 10:44 Fer Kennedy MD is Attending Physician. kb 11:00 Triage completed. me1 11:00 Arm band placed on Patient placed in an exam room. me1 11:37 US Extremity Venous Unilateral Ltd In Process Unspecified. EDMS 11:49 Ankle Right 3 View XRAY In Process Unspecified. EDMS 11:49 Foot Right 3 View XRAY In Process Unspecified. EDMS 12:51 Patient has correct armband on for positive identification. Bed in low position. Call me1 light in reach. Side rails up X2. Provided Education on: POC. Verbalized understanding.. Client placed on continuous cardiac and pulse oximetry monitoring. NIBP monitoring applied. Pulse ox on. NIBP on. 12:51 No provider procedures requiring assistance completed. Patient did not have IV access me1 during this emergency room visit. Administered Medications: No medications were administered Medication: 12:51 VIS not applicable for this client. me1 Outcome: 12:40 Discharge ordered by . kb 12:53 Discharged to home ambulatory, me1 12:53 Condition: stable 12:53 Discharge instructions given to patient, Instructed on discharge instructions, follow up and referral plans. Demonstrated understanding of instructions, follow-up care, medications, Prescriptions given X 2, 12:54 Patient left the ED. me1 Signatures: Dispatcher [employer] EDMS Griselda Mancilla, CHOREOGRAPHY DIRECTOR-C CHOREOGRAPHY DIRECTOR-Ckb Edilia Jhaveri, Reg Reg mr Destini Paris, RN RN me1
[2025-01-23 13:01] VITALS: O2SAT 100
[2025-01-23 13:02] VITALS: BP 126/64; TEMP 98.4
== END 2025-01-23 12:54 | disposition home or self-care (01) ==
LOC: ER 10:39
DX: M25.571 Pain in right ankle and joints of right foot (principal)
CPT/HCPCS: 93971; 99283